=== PATIENT | male | born 1940 | race Caucasian/White ===

== ENCOUNTER → 2019-12-10 10:01 | Outpatient (BNVA) | payer MEDICARE, SELFPAY | PROVIDERS: Family Provider Family Medicine; PCP Family Medicine; Visit Provider Anesthesiology | DX: M51.36 Other intervertebral disc degeneration, lumbar region (principal); M47.816 Spondylosis without myelopathy or radiculopathy, lumbar region; M47.817 Spondylosis without myelopathy or radiculopathy, lumbosacral region; M79.651 Pain in right thigh; M79.652 Pain in left thigh; Z79.891 Long term (current) use of opiate analgesic | CPT/HCPCS: 99214 ==

== ENCOUNTER 2019-12-15 06:05 | Day surgery (SDC) | payer MEDICARE, SELFPAY ==
[2019-12-14 10:37] VITALS: BMI 36.1
[2019-12-15 06:39] VITALS: BP 120/63; PULSE 67; RESP 18; TEMP 36; O2SAT 94
[2019-12-15 06:39] LABS: Glucose Point of Care 124 mg/dL (70-110)
[2019-12-15] MEDS: sodium chloride 0.9% 1,000 ML 30 ML (06:47)
--- NOTE | 2019-12-15 06:57 | ANES.PREANE2 ---
Pre-Anesthetic Assessment Pre-Anesthetic Assessment: Height/Weight: Height 1.73 m Weight 107.955 kg Temp Pulse Resp BP Pulse Ox 96.8 F L 67 18 120/63 94 12/15/19 06:39 12/15/19 06:39 12/15/19 06:39 12/15/19 06:39 12/15/19 06:39 Preop Diagnosis: Screening colonoscopy Proposed Procedure: Operation Date: 12/15/19 07:30 Proposed Procedures p Colonoscopy 23763 Z12.11(Not Applicable) - Josué Valentin MD Was Beta Naima taken within 24 hours: N/A Last intake: Intake Last Liquid Date 12/14/19 Last Liquid Time 22:30 Last Solid Date 12/14/19 Last Solid Time 07:00 Social: Social History: No alcohol and No tobacco Exam: Pre-Anes Outpt Exam: alert, oriented x 3 and clear to auscultation bilaterally Airway: Submandibular: WNL Cervical ROM: WNL MP: 3 History/ROS: No significant history except as noted Pulmonary: Pulmonary: COPD, Sleep apnea (doesnt wear CPAP) and URI Comments: bronchitis last month CV/HEM: CV/HEM: HTN : : None reported Hepatic: Hepatic: None reported GI: GI: GERD (controlled with meds) Metabolic: Metabolic: DM and Morbid obesity Musc/skel: Musc/skel: Lower Back Pain and OA/DJD Neuropsych: Neuropsych: None reported Anesthetic Plan: ASA status: 2 Anesthesia: Anesthesia Evaluation and MAC PFSH Anesthesia PFSH: Medical History (Updated 12/10/19 @ 10:52 by Paul Bedolla MD) DDD (degenerative disc disease), lumbar Diabetes Encounter for long-term use of opiate analgesic Erectile dysfunction Facet syndrome, lumbar Hyperlipidemia Hypertension Low back pain 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
--- NOTE | 2019-12-15 07:28 | P.HP_ITS ---
Same Day Surgery H&P Indication for Procedure/HPI DATE OF PROCEDURE: December 15, 2019 CHIEF COMPLAINT/INDICATIONFOR SURGICAL PROCEDURE: Screening colonoscopy PREOP DIAGNOSIS: Screening colonoscopy PLANNED PROCEDRUE: Operation Date: 12/15/19 07:30 Proposed Procedures p Colonoscopy 61201 Z12.11(Not Applicable) - Josué Valentin MD Medications/Allergies* Home Medications Medication Instructions Recorded Confirmed Type aspirin 81 mg tablet,delayed 81 mg PO DAILY 10/27/19 12/14/19 History release atorvastatin 80 mg tablet 80 mg PO DAILY 10/27/19 12/14/19 History insulin glargine 100 unit/mL (3 43 unit SUBCUT DAILY ml 10/27/19 12/14/19 History mL) subcutaneous pen omeprazole 20 mg capsule,delayed 20 mg PO BID 10/27/19 12/15/19 History release repaglinide 2 mg tablet 2 mg PO TID 10/27/19 12/15/19 History tamsulosin 0.4 mg capsule 0.4 mg PO DAILY 10/27/19 12/15/19 History lisinopril 5 mg tablet 5 mg PO BID 10/29/19 12/15/19 History methylcellulose (laxative) 500 mg 500 mg PO QDAY 10/29/19 12/15/19 History tablet hydrocodone-acetaminophen 1 tab PO TID PRN 12/14/19 12/15/19 History pregabalin [Lyrica] 200 mg PO QID 12/14/19 12/15/19 History sennosides [senna] 8.6 mg PO BID 12/14/19 12/15/19 History Allergies/Adverse Reactions Allergy/AdvReac Type Severity Reaction Status Date / Time metformin AdvReac Severe Unknown Verified 12/15/19 06:44 Sulfa (Sulfonamide AdvReac Mild ALGY-Rash Verified 12/15/19 06:44 Antibiotics) tadalafil [From Cialis] AdvReac Mild ADR-Back Verified 12/15/19 06:44 Pain Pertinent History/Comorbid Conditions* Medical History (Updated 12/10/19 @ 10:52 by Paul Bedolla MD) DDD (degenerative disc disease), lumbar Diabetes Encounter for long-term use of opiate analgesic Erectile dysfunction Facet syndrome, lumbar Hyperlipidemia Hypertension Low back pain 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 Peripheral neuropathy Testosterone deficiency Surgical History (Updated 10/30/19 @ 10:45 by Josué Valentin MD) H/O circumcision H/O colonoscopy 11 years ago H/O elbow surgery left with hardware placed and removed H/O toe surgery right big toe Family History (Updated 10/30/19 @ 10:30 by Vicki Winters LPN) Diabetes Cancer Brother lymphoma Denies family history of Anesthesia complication Bleeding disorder Social History Smoking and tobacco status: never smoked Alcohol intake: never Household members: spouse Marital status: Current occupational status: retired Pertinent Exam Findings alert, oriented x 3 and regular rate & rhythm Recommendations Surgery/Procedure today Coding Level of Care Code Acute 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
[2019-12-15 08:05] VITALS: BP 86/55; PULSE 60; RESP 18; TEMP 36.3; O2SAT 94
[2019-12-15 08:08] VITALS: BP 106/60; PULSE 62; RESP 18; O2SAT 95
== END 2019-12-15 08:39 | disposition home or self-care (01) ==
PROVIDERS: Family Provider Family Medicine; PCP Family Medicine; Visit Provider Surgery
PROC: 0DJD8ZZ Inspection of Lower Intestinal Tract, Via Natural or Artificial Opening Endoscopic (ICD-10-PCS; CPT 45378; principal; 2019-12-15 07:30)
DX: Z12.11 Encounter for screening for malignant neoplasm of colon (principal); K64.8 Other hemorrhoids; Z79.82 Long term (current) use of aspirin; E78.5 Hyperlipidemia, unspecified; I10 Essential (primary) hypertension; E11.42 Type 2 diabetes mellitus with diabetic polyneuropathy; Z83.3 Family history of diabetes mellitus; J44.9 Chronic obstructive pulmonary disease, unspecified; G47.30 Sleep apnea, unspecified; K21.9 Gastro-esophageal reflux disease without esophagitis; E11.9 Type 2 diabetes mellitus without complications; E66.01 Morbid (severe) obesity due to excess calories; Z68.36 Body mass index [BMI] 36.0-36.9, adult; M19.90 Unspecified osteoarthritis, unspecified site; Z79.891 Long term (current) use of opiate analgesic
CPT/HCPCS: 12345; 36416; 82962; G0121; J2704; J7030

== ENCOUNTER → 2020-04-01 10:53 | Outpatient (BNVA) | payer MEDICARE, SELFPAY | PROVIDERS: Family Provider Family Medicine; PCP Family Medicine; Visit Provider Anesthesiology | DX: M51.36 Other intervertebral disc degeneration, lumbar region (principal); M47.816 Spondylosis without myelopathy or radiculopathy, lumbar region; M47.817 Spondylosis without myelopathy or radiculopathy, lumbosacral region; Z79.891 Long term (current) use of opiate analgesic | CPT/HCPCS: 99213; 99214 ==

== ENCOUNTER → 2020-06-14 07:53 | Outpatient (BNVA) | payer MEDICARE, SELFPAY | PROVIDERS: Family Provider Family Medicine; PCP Family Medicine; Visit Provider Anesthesiology | DX: M51.36 Other intervertebral disc degeneration, lumbar region (principal); M47.816 Spondylosis without myelopathy or radiculopathy, lumbar region; M47.817 Spondylosis without myelopathy or radiculopathy, lumbosacral region; Z79.891 Long term (current) use of opiate analgesic | CPT/HCPCS: 99213; 99214 ==

== ENCOUNTER → 2020-08-31 07:53 | Outpatient (BNVA) | payer MEDICARE, SELFPAY | PROVIDERS: Family Provider Family Medicine; PCP Family Medicine; Visit Provider Anesthesiology | DX: M51.36 Other intervertebral disc degeneration, lumbar region (principal); M47.816 Spondylosis without myelopathy or radiculopathy, lumbar region; M47.817 Spondylosis without myelopathy or radiculopathy, lumbosacral region; Z79.891 Long term (current) use of opiate analgesic | CPT/HCPCS: 99214 ==

== ENCOUNTER → 2020-10-20 09:27 | Outpatient (BNVA) | payer MEDICARE, SELFPAY | PROVIDERS: Family Provider Family Medicine; PCP Family Medicine; Visit Provider Nurse Practitioner | DX: M51.36 Other intervertebral disc degeneration, lumbar region (principal); M47.816 Spondylosis without myelopathy or radiculopathy, lumbar region; M47.817 Spondylosis without myelopathy or radiculopathy, lumbosacral region; Z79.891 Long term (current) use of opiate analgesic | CPT/HCPCS: 99214 ==

== ENCOUNTER → 2021-02-01 08:32 | Outpatient (BNVA) | payer MEDICARE, SELFPAY | PROVIDERS: Family Provider Family Medicine; PCP Family Medicine; Visit Provider Anesthesiology | DX: M51.36 Other intervertebral disc degeneration, lumbar region (principal); M47.816 Spondylosis without myelopathy or radiculopathy, lumbar region; M47.817 Spondylosis without myelopathy or radiculopathy, lumbosacral region; M79.671 Pain in right foot; M79.672 Pain in left foot; Z79.891 Long term (current) use of opiate analgesic | CPT/HCPCS: 99213 ==

== ENCOUNTER → 2021-04-04 09:25 | Outpatient (BNVA) | payer MEDICARE, SELFPAY | PROVIDERS: Family Provider Family Medicine; PCP Family Medicine; Visit Provider Nurse Practitioner | DX: M51.36 Other intervertebral disc degeneration, lumbar region (principal); M47.816 Spondylosis without myelopathy or radiculopathy, lumbar region; M47.817 Spondylosis without myelopathy or radiculopathy, lumbosacral region; Z79.891 Long term (current) use of opiate analgesic | CPT/HCPCS: 99213 ==

== ENCOUNTER → 2021-05-30 08:47 | Outpatient (BNVA) | payer MEDICARE, SELFPAY | PROVIDERS: Family Provider Family Medicine; PCP Family Medicine; Visit Provider Nurse Practitioner | DX: M51.36 Other intervertebral disc degeneration, lumbar region (principal); M47.816 Spondylosis without myelopathy or radiculopathy, lumbar region; M47.817 Spondylosis without myelopathy or radiculopathy, lumbosacral region; Z79.891 Long term (current) use of opiate analgesic | CPT/HCPCS: 99213 ==

== ENCOUNTER → 2021-07-25 14:01 | Outpatient (BNVA) | payer MEDICARE, SELFPAY | PROVIDERS: Family Provider Family Medicine; PCP Family Medicine; Visit Provider Anesthesiology | DX: M51.36 Other intervertebral disc degeneration, lumbar region (principal); M47.817 Spondylosis without myelopathy or radiculopathy, lumbosacral region; M47.816 Spondylosis without myelopathy or radiculopathy, lumbar region; M79.673 Pain in unspecified foot; Z79.891 Long term (current) use of opiate analgesic | CPT/HCPCS: 99213; 99214 ==

== ENCOUNTER 2022-03-27 12:44 | Outpatient (CLI) | payer MEDICARE, SELFPAY ==
--- NOTE | 2022-03-27 12:57 | MR_ITS ---
WS: [id number] MRI LUMBAR SPINE NONCONTRAST TECHNIQUE: Sagittal T1, T2 and STIR imaging. Axial T1 and T2 imaging. 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 FINDINGS: Mild lumbar curve. No acute compression. No high-grade central canal stenosis. L1-L2: Normal. L2-L3: Mild annular bulging. Mild facet arthropathy. Spinal canal and foramen are patent. L3-L4: Mild annular bulging eccentric to the RIGHT. Slight impingement on the RIGHT subarticular rece ss and traversing RIGHT L4 nerve root. Moderate facet arthropathy. Mild RIGHT foraminal narrowing. Ti ny synovial cyst at this level contributes to RIGHT subarticular recess impingement L4-L5: Mild annular bulging with slight effacement of ventral thecal sac. Shallow central protrusion. Mild RIGHT foraminal narrowing. Moderate facet arthropathy ligamentum flavum hypertrophy. L5-S1: Minimal disc bulging. Mild facet arthropathy. Spinal canal and foramen are patent. Visualized pelvic bony structures: Normal. Paravertebral soft tissues: Normal. MR/MR lumbar spine wo con* [id number] IMPRESSION: 1. Mild lumbar curve. No acute compression. No high-grade central canal stenos is. 2. Disc bulging L3-L4 impinges the RIGHT subarticular recess and traversing RI GHT L4 nerve root. Moderate facet arthropathy at this level suggestion of a tin y RIGHT synovial cyst contributes to subarticular recess impingement. 3. Disc osteophytic ridging L4-L5 with mild RIGHT L4-L5 foraminal narrowing. S light contact of the exiting RIGHT L4 nerve root. Narrowing of the subarticular recess bilaterally at this level. 4. Moderate facet arthropathy L3-L5.
== END 2022-03-27 12:45 | disposition home or self-care (01) ==
LOC: RAD 12:53
PROVIDERS: Family Provider Family Medicine; PCP Family Medicine; Visit Provider General Practice
DX: M47.816 Spondylosis without myelopathy or radiculopathy, lumbar region (principal)
CPT/HCPCS: 72148

== ENCOUNTER 2024-04-24 16:01 | Inpatient (IN) | payer MEDICARE, SELFPAY ==
[2024-04-24] VITALS (9 sets, daily range): BP systolic 64–150; BP diastolic 51–86; PULSE 82–96; RESP 14–20; TEMP 36.3–36.7; O2SAT 91–96; BMI 28.7
--- NOTE | 2024-04-24 16:06 | ECG_ITS ---
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 Measurements Intervals [place] Rate: 89 P: 55 [place]: 278 QRS: -20 QRSD: 93 T: 29 QT: 371 QTc: 453 Interpretive Statements SINUS RHYTHM WITH FIRST DEGREE AV BLOCK INDETERMINATE AXIS INCOMPLETE RIGHT BUNDLE BRANCH BLOCK [90+ ms QRS DURATION, TERMINAL R IN V1/V2, 40+ ms S IN I/aVL/V4/V5/V6] No previous ECG available for comparison Electronically Signed On 04-24-2024 20:01:19 CDT by Sanam Boswell M.D. [id number] f
[2024-04-24 16:10] LABS: Glucose Point of Care 177 mg/dL (70-110)
--- NOTE | 2024-04-24 16:11 | W.ED.FALL ---
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 He was experiencing a lightheadedness, vision narrowing, chest pain, or shortness of breath prior to this episode. He does not recall falling to the ground but waking up on the ground. He has pain in the base of his skull, the back of his neck, and severe pain in his chest. No prodromal symptoms prior to the fall. No fevers, sweats, chills, cough. Pain chest and neck describes aching, worse with movement and better with rest. ROS: 10 systems reviewed and otherwise unremarkable except for those noted in HPI. Physical Exam: Triage vital signs reviewed General: No acute distress, cooperative and comfortable HEENT: Tenderness palpation over the cervical spine, c-collar verbal order placed immediately on examination external ears normal, moist mucous membranes, PERRLA. Chest: Normal inspection, equal rise and fall, no edema, profound tenderness palpation over the sternum Respiratory: Normal respiratory effort, no atypical respiratory sounds GI: Non-tender to palpation, non-distended, Extremities: Moving all 4 extremities easily, no deformities Neuro: No meningeal signs, motor function in the room without abnormalities, sensation intact C4-T1 neurologic exam sensation and strength intact bilaterally. Skin: No rashes, bruising, warm, dry Psychiatric: Normal mood and affect Procedures: N/A MDM: Considered diagnoses include but are not limited to sequelae of blunt trauma from a fall including intracranial hemorrhage, C-spine injury, rib fracture, sternal fracture, clavicle fracture, blunt thoracic injury including blunt cardiac injury or pulmonary contusion, causes of fall including causes of syncope. Vital signs nonactionable. Based on history, exam, and any results CT demonstrating C5 and C6 fractures as well as sternal fracture. Advised of findings. Consulted [facility] and spoke to neurosurgeon who states fractures are nonsurgical at this time. Spoke to trauma surgeon at [facility] who states no need for trauma transfer at this time. Will admit the patient to this hospital for physical therapy and Occupational Therapy and pain control given age and injuries sustained. Patient pending delta troponin at time of admission. Given morphine and Tylenol in the emergency department for pain control. No neurologic deficits. Patient educated about reasons to return to the emergency department including signs of ongoing or changing condition. Advised to make an appointment with primary care or to establish care with a primary care provider to review all results from this encounter. This note was written with assistance of dictation software. Contact author for any clarification of typos. Ander Grewal MD [facility] ED [facility]: Medical History (Updated 04/24/24 @ 19:39 by Ander Grewal MD) Opioid contract exists Encounter for long-term use of opiate analgesic DDD (degenerative disc disease), lumbar Facet syndrome, lumbar Lumbar and sacral spondyloarthritis Hyperlipidemia Peripheral neuropathy Low back pain Erectile dysfunction Diabetes Testosterone deficiency Hypertension Surgical History H/O toe surgery right big toe H/O colonoscopy 12/14/2019: Normal, poor prep, repeat in 5 years H/O elbow surgery left with hardware placed and removed H/O circumcision Family History Brother Cancer lymphoma Other Diabetes Denies family history of Anesthesia complication Bleeding disorder Social History Smoking and tobacco/nicotine status: never used tobacco/nicotine Second hand smoke exposure: No Alcohol intake: never Substance/Drug Use: never Household members: spouse Marital status: Current occupational status: retired Course Vital Signs: Vital signs: Vital Signs Temperature 98.1 F 04/24/24 16:04 Pulse Rate 96 04/24/24 19:00 Respiratory Rate 14 04/24/24 19:00 Blood Pressure 142/86 04/24/24 19:00 Pulse Oximetry 96 04/24/24 19:00 Oxygen Delivery Me thod Nasal Cannula 04/24/24 19:00 Oxygen Flow Rate 2 04/24/24 19:00 MDM - Fall Medical Decision Making see [facility] Lab Data 04/24/24 16:31 04/24/24 16:31 Radiology Impressions Cervical Spine CT 04/24/24 16:18 IMPRESSION: 1. Minimally displaced acute fracture of the right C5 facet and lamina. 2. Minimally displaced acute fracture of the superior right C6 facet. 3. Old, mild compression deformities of C6 through T3. 4. Multilevel degenerative changes of varying severity in the visualized spine. Multilevel foraminal stenosis of varying severity in the cervical spine. 5. Incidental/nonacute findings are listed in the report. ADDENDUM: 04/24/24 1244 THIS REPORT CONTAINS FINDINGS THAT MAY BE CRITICAL TO PATIENT CARE. The findings were verbally communicated via telephone conference with Ander Royal at 5:43 PM CDT on 04/24/2024. The findings were acknowledged and understood. Head CT 04/24/24 16:18 IMPRESSION: 1. No acute abnormality of the brain. 2. Mild atrophy of the brain parenchyma. 3. Mild chronic white matter microangiopathic change. 4. Incidental/nonacute findings are listed in the report. Chest/Abdomen/Pelvis CT 04/24/24 16:21 IMPRESSION: Nondisplaced sternal fracture. Age-indeterminate compression deformities of C7-T3. IMPRESSION: No acute findings. Laboratory Results WBC 13.86 10^3/uL (3.29-11.43) H 04/24/24 16:31 RBC 5.35 10^6/uL (3.85-5.65) 04/24/24 16:31 Hgb 15.20 g/dL (11.27-16.99) 04/24/24 16:31 Hct 45.9 % (37-53) 04/24/24 16:31 MCV 85.8 fl (82-101) 04/24/24 16:31 MCH 28.4 pg (27-33) 04/24/24 16:31 MCHC 33.1 g/dL (30-55) 04/24/24 16:31 RDW 12.8 % (12.1-15.1) 04/24/24 16:31 Plt Count 196 10^3/cmm (157-399) 04/24/24 16:31 MPV 10.6 fL (7.4-10.4) H 04/24/24 16:31 Neut % (Auto) 76.1 % 04/24/24 16:31 Lymph % (Auto) 16.1 % 04/24/24 16:31 Izard % (Auto) 6.2 % 04/24/24 16:31 Eos % (Auto) 0.4 % 04/24/24 16:31 Baso % (Auto) 0.4 % 04/24/24 16:31 Neut # (Auto) 10.56 10^3/uL (1.8-7.7) H 04/24/24 16:31 Lymph # (Auto) 2.2 10^3/uL (0.8-4.8) 04/24/24 16:31 Izard # (Auto) 0.9 10^3/uL (0.2-0.9) 04/24/24 16:31 Eos # (Auto) 0.1 10^3/uL (0.0-0.8) 04/24/24 16:31 Baso # (Auto) 0.1 10^3/uL (0.0-0.1) 04/24/24 16:31 Nucleated RBC % (auto) 0 % 04/24/24 16:31 Nucleated RBCs # 0.0 /100WBC 04/24/24 16:31 Sodium 140 mmol/L (136-145) 04/24/24 16:31 Potassium 4.5 mmol/L (3.5-5.1) 04/24/24 16:31 Chloride 101 mmol/L (98-107) 04/24/24 16:31 Carbon Dioxide 26 mmol/L (22-29) 04/24/24 16:31 Anion Gap 17.5 (5-19) 04/24/24 16:31 BUN 24 mg/dL (8-23) H 04/24/24 16:31 Creatinine 1.3 mg/dL (0.7-1.2) H 04/24/24 16:31 GFR Calculation Not Reportable 04/24/24 16:31 Glucose 207 mg/dL (65-115) H 04/24/24 16:31 POC Glucose 177 mg/dL (70-110) H 04/24/24 16:07 Calculated Osmolality 300 mOsm/kg (285-295) H 04/24/24 16:31 Calcium 9.4 mg/dL (8.5-10.5) 04/24/24 16:31 Total Bilirubin 0.6 mg/dL (0.15-1.2) 04/24/24 16:31 AST 75 U/L (0-40) H 04/24/24 16:31 ALT 66 U/L (0-41) H 04/24/24 16:31 Alkaline Phosphatase 100 U/L (40-130) 04/24/24 16:31 Troponin T Baseline 23 ng/L (0-15) H 04/24/24 16:31 Troponin T 120 Minute 16.86 ng/L (0-15) H 04/24/24 18:27 Delta Troponin T -6.14 ABS# (0-10) L 04/24/24 18:27 Total Protein 7.6 g/dL (6.6-8.7) 04/24/24 16:31 Albumin 4.4 g/dL (3.5-5.2) 04/24/24 16:31 Globulin 3.2 g/dL (1.3-4.6) 04/24/24 16:31 All radiology interpretation(s) finalized by discharge Discharge Plan Discharge Patient Disposition: Admitted As Inpatient Clinical Impression: C5 cervical fracture Qualifiers: Encounter type: initial encounter Fracture type: closed Fracture morphology: other fracture Fracture alignment: displaced Qualified Code(s): S12.490A - Other displaced fracture of fifth cervical vertebra, initial encounter for closed fracture Sternal fracture Qualifiers: Encounter type: initial encounter Sternal location: body of sternum Fracture type: closed Qualified Code(s): S22.22XA - Fracture of body of sternum, initial encounter for closed fracture Condition: Stable Prescriptions: No Action lisinopril 5 mg tablet 5 mg PO BID Fiber Laxative(methylcellulos) 500 mg tablet 500 mg PO QDAY Ozempic 0.25 mg or 0.5 mg(2 mg/1.5 mL) pen injector SUBCUT .WEEKLY hydrocodone-acetaminophen 10-325 mg tablet 1 tab PO TID PRN (Reason: pain) 30 Days Qty: 90 0RF Rx Instructions: fill on or after 07/25/21 hydrocodone-acetaminophen 10-325 mg tablet 1 tab PO TID PRN (Reason: pain) 30 Days Qty: 90 0RF Rx Instructions: fill on or after 08/24/21 tramadol 50 mg tablet 50 mg PO Q6H PRN (Reason: pain) 30 Days Qty: 120 1RF Rx Instructions: Fill on or after 07/25/21 and 08/24/21 pregabalin [Lyrica] 200 mg capsule 200 mg PO QID 30 Days Qty: 120 1RF omeprazole 20 mg capsule,delayed release(DR/EC) 20 mg PO BID repaglinide [Prandin] 2 mg tablet 2 mg PO TID Lantus Solostar U-100 Insulin 100 unit/mL (3 mL) insulin pen 43 unit SUBCUT DAILY atorvastatin 80 mg tablet 80 mg PO DAILY tamsulosin 0.4 mg capsule 0.4 mg PO DAILY aspirin 81 mg tablet,delayed release (DR/EC) 81 mg PO DAILY sennosides [senna] 8.6 mg Tablet 8.6 mg PO BID Referrals: Blade Sebastian MD [Primary Care Provider] - Coding Level of Care Code ED De Icer Installer for Eddi Pearce
--- NOTE | 2024-04-24 16:18 | CTR_ITS ---
PROCEDURE INFORMATION: Exam: CT Cervical Spine Without Contrast Exam date and time: 04/24/2024 4:32 PM Age: 83 years old Clinical indication: Injury or trauma; Fall; Blunt trauma; Additional info: Fall, neck pain, loc TECHNIQUE: Imaging protocol: Computed tomography of the cervical spine without contrast. Sagittal, oblique axial, and coronal reformatted images were created and reviewed. Radiation optimization: All CT scans at this facility use at least one of these dose optimization techniques: automated exposure control; mA and/or kV adjustment per patient size (includes targeted exams where dose is matched to clinical indication); or iterative reconstruction. COMPARISON: CT head wo con* [id number] 04/24/2024 4:32 PM RADIATION DOSE METRICS: Total DLP (mGy-cm): 829.6 FINDINGS: Bones: Old, mild compression deformities of C6 through T3. Minimally displaced acute fracture of the right C5 facet and lamina (series 7, images 33-40). Minimally displaced acute fracture of the superior right see 6 facet (series 7, images 39-42). No subluxation. Bones are diffusely osteopenic. Multilevel degenerative changes of varying severity in the visualized spine. Multilevel foraminal stenosis of varying severity in the cervical spine. Mastoid air cells: Visualized mastoid air cells are clear. Lungs: Visualized lungs are clear. Vasculature: Mild atherosclerotic changes in the visualized arteries. Soft tissues: No soft tissue swelling. No radiopaque foreign body. CT/CT cervical spin wo con* [id number] IMPRESSION: 1. Minimally displaced acute fracture of the right C5 facet and lamina. 2. Minimally displaced acute fracture of the superior right C6 facet. 3. Old, mild compression deformities of C6 through T3. 4. Multilevel degenerative changes of varying severity in the visualized spine. Multilevel foraminal stenosis of varying severity in the cervical spine. 5. Incidental/nonacute findings are listed in the report.
--- NOTE | 2024-04-24 16:18 | CTR_ITS ---
PROCEDURE INFORMATION: Exam: CT Head Without Contrast Exam date and time: 04/24/2024 4:32 PM Age: 83 years old Clinical indication: Injury or trauma; Fall; Blunt trauma (contusions or hematomas); With loss of consciousness; Loss of consciousness for 30 minutes or less; Additional info: Fall loc, neck and posterior head pain TECHNIQUE: Imaging protocol: Computed tomography of the head without contrast. Sagittal and coronal reformatted images were created and reviewed. Radiation optimization: All CT scans at this facility use at least one of these dose optimization techniques: automated exposure control; mA and/or kV adjustment per patient size (includes targeted exams where dose is matched to clinical indication); or iterative reconstruction. COMPARISON: CT cervical spin wo con* [id number] 04/24/2024 4:32 PM RADIATION DOSE METRICS: Total DLP (mGy-cm): 868 FINDINGS: Brain: No acute intracranial hemorrhage. No acute infarct. No intra-axial or extra-axial masses. Herman-white matter differentiation is preserved. No cerebral edema. No extra-axial fluid collections. No midline shift. No evidence for Chiari 1 malformation. Mild atrophy of the brain parenchyma. Mildly decreased attenuation in the deep white matter, consistent with mild chronic microangiopathic change. Cerebral ventricles: No hydrocephalus. Paranasal sinuses: Visualized paranasal sinuses are clear. Mastoid air cells: Unremarkable as visualized. Orbital cavities: No acute abnormality in the visualized orbits. Bones: No acute fracture. Bones are diffusely osteopenic. Soft tissues: The extracranial soft tissues are unremarkable. Vasculature: InMild atherosclerotic changes in the visualized arteries. CT/CT head wo con* [id number] IMPRESSION: 1. No acute abnormality of the brain. 2. Mild atrophy of the brain parenchyma. 3. Mild chronic white matter microangiopathic change. 4. Incidental/nonacute findings are listed in the report.
--- NOTE | 2024-04-24 16:21 | CTR_ITS ---
PROCEDURE INFORMATION: Exam: CT Chest Without Contrast; Diagnostic Exam date and time: 04/24/2024 4:37 PM Age: 83 years old Clinical indication: Injury or trauma; Fall; Generalized; Blunt trauma (contusions or hematomas); Additional info: Fall with loc, eval trauma TECHNIQUE: Imaging protocol: Diagnostic computed tomography of the chest without contrast. Radiation optimization: All CT scans at this facility use at least one of these dose optimization techniques: automated exposure control; mA and/or kV adjustment per patient size (includes targeted exams where dose is matched to clinical indication); or iterative reconstruction. COMPARISON: CT cervical spin wo con* [id number] 04/24/2024 4:32 PM RADIATION DOSE METRICS: Total DLP (mGy-cm): 1135.18 FINDINGS: Lungs: No focal consolidation. Pleural spaces: No pneumothorax or pleural effusion. Heart: Coronary calcifications. No pericardial effusion. Lymph nodes: No enlarged lymph nodes. Vasculature: No aortic aneurysm. Bones/joints: Nondisplaced sternal fracture. Mild age-indeterminate compression deformities of C7-T3 with resulting kyphosis. No significant retropulsion. Soft tissues: No acute findings. PROCEDURE INFORMATION: Exam: CT Abdomen And Pelvis Without Contrast Exam date and time: 04/24/2024 4:37 PM Age: 83 years old Clinical indication: Injury or trauma; Fall; Generalized; Blunt trauma (contusions or hematomas); Additional info: Fall with loc, eval trauma TECHNIQUE: Imaging protocol: Computed tomography of the abdomen and pelvis without contrast. Radiation optimization: All CT scans at this facility use at least one of these dose optimization techniques: automated exposure control; mA and/or kV adjustment per patient size (includes targeted exams where dose is matched to clinical indication); or iterative reconstruction. COMPARISON: MR lumbar spine wo con* [id number] 03/27/2022 1:53 PM RADIATION DOSE METRICS: Total DLP (mGy-cm): 1135.18 FINDINGS: Liver: No acute findings Gallbladder and biliary ducts: No acute findings. Pancreas: No ductal dilation. Spleen: No splenomegaly. Adrenal glands: No mass. Kidneys and ureters: No stones or hydronephrosis. Stomach and bowel: Small hiatal hernia. No obstruction. Appendix: No evidence of appendicitis. Intraperitoneal space: No free air. No significant fluid collection. Vasculature: No abdominal aortic aneurysm. Lymph nodes: No enlarged lymph nodes. Urinary bladder: Incompletely distended. Reproductive: Mild prostatomegaly. Bones/joints: No acute findings. Soft tissues: No acute findings. [place] [id number] IMPRESSION: Nondisplaced sternal fracture. Age-indeterminate compression deformities of C7-T3. IMPRESSION: No acute findings.
[2024-04-24 17:15] LABS: Alanine Aminotransferase 66 U/L (0-41); Albumin Level 4.4 g/dL (3.5-5.2); Alkaline Phosphatase 100 U/L (40-130); Anion Gap 17.5 (5-19); Aspartate Amino Transferase 75 U/L (0-40); Basophils # 0.1 10^3/uL (0.0-0.1); Basophils % 0.4 %; Blood Urea Nitrogen 24 mg/dL (8-23); Calcium 9.4 mg/dL (8.5-10.5); Carbon Dioxide 26 mmol/L (22-29); Chloride 101 mmol/L (98-107); Creatinine Clr Calc Pharmacy 52.0385; Eosinophils # 0.1 10^3/uL (0.0-0.8); Eosinophils % 0.4 %; Globulin 3.2 g/dL (1.3-4.6); Glucose 207 mg/dL (65-115); Hematocrit 45.9 % (37-53); Lymphocytes # 2.2 10^3/uL (0.8-4.8); Lymphocytes % 16.1 %; Mean Corpuscular HGB Conc 33.1 g/dL (30-55); Mean Corpuscular Hemoglobin 28.4 pg (27-33); Mean Corpuscular Volume 85.8 fl (82-101); Mean Platelet Volume 10.6 fL (7.4-10.4); Monocytes # 0.9 10^3/uL (0.2-0.9); Monocytes % 6.2 %; Neutrophils # 10.56 10^3/uL (1.8-7.7); Neutrophils % 76.1 %; Nucleated Red Blood Cells % 0 %; Osmolality Calculated 300 mOsm/kg (285-295); Platelet Count 196 10^3/cmm (157-399); Potassium 4.5 mmol/L (3.5-5.1); Red Blood Count 5.35 10^6/uL (3.85-5.65); Red Cell Distribution Width 12.8 % (12.1-15.1); Sodium 140 mmol/L (136-145); Total Bilirubin 0.6 mg/dL (0.15-1.2); Total Protein 7.6 g/dL (6.6-8.7); White Blood Count 13.86 10^3/uL (3.29-11.43)
[2024-04-24 17:16] LABS: Troponin(5th) Baseline 23 ng/L (0-15)
--- NOTE | 2024-04-24 18:42 | PC.NURSE ---
Patient placed on oxygen @ 2l nc d/t desat when sleeping to 85%. Improvement to mid 90s and Dr Grewal notified.
[2024-04-24 18:56] LABS: Troponin 5 2HR 16.86 ng/L (0-15)
[2024-04-24 18:57] LABS: Troponin 5 2HR Delta -6.14 ABS# (0-10)
--- NOTE | 2024-04-24 19:34 | P.HP_ITS ---
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 Patient is stating that last night he was experiencing significant burning in his feet related to neuropathy he took morphine and Lyrica and repeated the dose in the morning. When he woke up he was not experiencing any chest pain shortness of breath nausea vomiting, he went out to load his semitrailer. Patient walked out from one of the side doors of the truck as soon as he came in front of the truck he passed out. He did not express any warning symptoms. Patient thinks he was just dehydrated. He did not experience any seizure related activity. In the ER I have requested orthostatics hypotension, patient looks dehydrated Trauma workup revealed old compression deformity C6-T3 Acute fracture of right C5 facet, C6 ER physician spoke with the emergency trauma surgeon at [facility] and neurosurgeon they recommended nonoperative options such as pain management, keeping the cervical collar on for at least 6 to 8 weeks and then follow-up with the trauma surgeon outpatient, Review of Systems 2 Const: Denies: fever(s) Eyes: Denies: change in vision ENMT: Denies: throat pain Card: Denies: chest pain Resp: Denies: dyspnea GI: Denies: abdominal pain : Denies: flank pain Musc: Denies: neck pain Medications/Allergies Home Medications Medication Instructions Recorded Confirmed Last Taken Type aspirin 81 mg tablet,delayed 81 mg PO DAILY 10/27/19 04/24/24 12/14/19 History release atorvastatin 80 mg tablet 80 mg PO DAILY 10/27/19 04/24/24 12/14/19 History insulin glargine 100 unit/mL (3 80 unit SUBCUT DAILY 10/27/19 04/24/24 12/14/19 History mL) subcutaneous pen (Lantus Solostar U-100 Insulin) omeprazole 20 mg capsule,delayed 20 mg PO BID 10/27/19 04/24/24 12/15/19 History release methylcellulose (laxative) 500 mg 500 mg PO QDAY 10/29/19 04/24/24 12/14/19 History tablet (Fiber Laxative (methylcellulose)) sennosides 8.6 mg tablet (senna) 8.6 mg PO BID 12/14/19 04/24/24 12/14/19 History morphine 15 mg immediate release 15 mg PO Q8H PRN Pain 04/24/24 04/24/24 Unknown History tablet pregabalin 300 mg capsule 300 mg PO BID 04/24/24 04/24/24 Unknown History tirzepatide 12.5 mg/0.5 mL 12.5 mg SUBCUT Q7D 04/24/24 04/24/24 Unknown History subcutaneous pen injector (Mounjaro) Allergies Allergy/AdvReac Type Severity Reaction Status Date / Time metformin AdvReac Severe Unknown Verified 10/04/21 08:49 Sulfa (Sulfonamide AdvReac Mild ALGY-Rash Verified 10/04/21 08:49 Antibiotics) tadalafil [From Cialis] AdvReac Mild ADR-Back Verified 10/04/21 08:49 Pain PFSH Acute 2 PFSH: Medical History (Updated 04/24/24 @ 20:19 by Atiya Kerr MD) Opioid contract exists Encounter for long-term use of opiate analgesic DDD (degenerative disc disease), lumbar Facet syndrome, lumbar Lumbar and sacral spondyloarthritis Hyperlipidemia Peripheral neuropathy Low back pain Erectile dysfunction Diabetes Testosterone deficiency Hypertension Surgical History H/O toe surgery right big toe H/O colonoscopy 12/14/2019: Normal, poor prep, repeat in 5 years H/O elbow surgery left with hardware placed and removed H/O circumcision Family History Brother Cancer lymphoma Other Diabetes Denies family history of Anesthesia complication Bleeding disorder Social History Smoking and tobacco/nicotine status: never used tobacco/nicotine Second hand smoke exposure: No Alcohol intake: never Substance/Drug Use: never Household members: spouse Marital status: Current occupational status: retired Vitals/I&O/Wt Last Vital Signs Temp 98.1 F 04/24/24 16:04 Pulse 96 04/24/24 19:00 Resp 14 04/24/24 19:00 BP 142/86 04/24/24 19:00 Pulse Ox 96 04/24/24 19:00 O2 Del Method Nasal Cannula 04/24/24 19:00 O2 Flow Rate 2 04/24/24 19:00 Weight last 48 hrs Weight 93.44 kg Physical Exam 2 Narrative: Patient is awake and alert Has a C-spine collar Hemodynamically stable Hypertensive Sinus rhythm No active pain GCS 15 S1, S2 No audible stridor or wheezing Currently on 2 L nasal cannula Pleasant cooperative Nonfocal neuroexam NIH 0 GCS 15 Clinically looks slightly dehydrated Data 04/24/24 16:31 04/24/24 16:31 A&P Assessment and plan (1) Encounter for long-term use of opiate analgesic: (2) Lumbar and sacral spondyloarthritis: (3) Facet syndrome, lumbar: (4) C5 cervical fracture: Qualifiers: Encounter type: initial encounter Fracture alignment: displaced F racture morphology: other fracture Fracture type: closed Qualified Code(s): S 12.490A - Other displaced fracture of fifth cervical vertebra, initial encounter for closed fracture (5) Dehydration: Plan Syncopal event Will request echo Request D-dimer Keep patient on telemetry Check B12 and TSH Serial troponin EKG No history of MD or CHF in the past Rule out orthostatics Patient stating that he took doses of Lyrica and morphine at a very short interval he is concerned about overdose No significant hemodynamic instability C7-T3 fracture Cervical collar is on Spoke with trauma surgery who recommended nonoperative medical options for now Pain management Patient will need to keep the collar on for at least 6 to 8 weeks He will need clearance before he resumes his work which is physically challenging Diabetic neuropathy Continue Lyrica Chronic opioid use takes morphine at home 15 mg, follows up with pain management clinic at [facility] ROMA: Do not have baseline creatinine, monitor closely for now I will give patient IV fluids overnight Request orthostatics Full code DVT prophylaxis: Heparin Attestations 2 Medical Necessity Statement*: Anticipating discharge within 48 hours Diagnoses Encounter for long-term use of opiate analgesic Z79.891 Lumbar and sacral spondyloarthritis M47.817 Facet syndrome, lumbar M47.816 C5 cervical fracture S12.490A Encounter type: initial encounter Fracture alignment: displaced Fracture morphology: other fracture Fracture type: closed Dehydration E86.0
--- NOTE | 2024-04-24 19:36 | PC.NURSE ---
Per verbal order Dr Grewal Give pt zofran 4mg ivp and morphine 4mg ivp. RBVO and placed.
[2024-04-24] MEDS: ondansetron 2 mg/ML SDV 2 mL 4 MG IVP (20:06)
[2024-04-24] MEDS: morphine 4 mg/mL SDV 1 mL IVP (20:07)
[2024-04-24] MEDS: acetaminophen 500 mg Tablet 1000 MG PO (20:41)
[2024-04-24] MEDS: sodium chloride 0.9% 1,000 ML 75 ML IV (21:12)
[2024-04-24] MEDS: heparin 5,000 unit/mL INJ 1 mL 5000 UNIT SUBCUT (21:18)
[2024-04-24 21:21] LABS: D Dimer 11.85 ug/mLFEU (0-0.59)
[2024-04-24 21:30] LABS: Estmated Average Glucose 235; Hemoglobin A1C 9.8 % (4.0-6.0)
[2024-04-24 21:47] LABS: Thyroid Stimulating Hormone 2.07 uIU/mL (0.27-4.20); Vitamin B12 1066 pg/mL (232-1245)
[2024-04-25] VITALS (16 sets, daily range): BP systolic 126–152; BP diastolic 70–76; PULSE 72–83; RESP 12–18; TEMP 36.4–37.4; O2SAT 92–97
[2024-04-25] MEDS: morphine IR 15 mg Tablet PO (02:42)
[2024-04-25 03:02] LABS: Urine Appearance Clear (CLEAR); Urine Color Dark Yellow (Yellow)
[2024-04-25 03:03] LABS: Add Urine Microscopic? YES; Bacteria Urine 1+ /hpf; Bilirubin Urine Neg (Negative); Blood Urine Neg (Negative); Glucose Urine UA 1+ (Normal); Ketones Urine Negative (Negative); Leukocyte Esterase Urine Negative (Negative); Mucus Urine 1+ /hpf; Nitrate Urine Negative (Negative); Protein Urine Trace (Negative); RBC Urine 0-4 /hpf (0-2); Squamous Epithelial Cell Urine 0-4 /hpf (0-5); Urobilinogen Urine Neg (Negative); WBC Urine 0-4 /hpf (0-5); pH Urine 5 (5-7)
[2024-04-25 04:11] LABS: Basophils % 0.3 %; Eosinophils # 0.1 10^3/uL (0.0-0.8); Eosinophils % 1.3 %; Hematocrit 44.5 % (37-53); Lymphocytes # 2.7 10^3/uL (0.8-4.8); Lymphocytes % 24.5 %; Mean Corpuscular HGB Conc 32.1 g/dL (30-55); Mean Corpuscular Volume 87.1 fl (82-101); Monocytes # 0.9 10^3/uL (0.2-0.9); Monocytes % 7.8 %; Neutrophils # 7.21 10^3/uL (1.8-7.7); Neutrophils % 65.6 %; Nucleated Red Blood Cells % 0 %; Platelet Count 190 10^3/cmm (157-399); Red Blood Count 5.11 10^6/uL (3.85-5.65); Red Cell Distribution Width 12.9 % (12.1-15.1)
[2024-04-25 04:35] LABS: Anion Gap 15.9 (5-19); Blood Urea Nitrogen 23 mg/dL (8-23); Calcium 8.9 mg/dL (8.5-10.5); Carbon Dioxide 25 mmol/L (22-29); Chloride 102 mmol/L (98-107); Creatinine Clr Calc Pharmacy 57.9006; Glucose 229 mg/dL (65-115); Osmolality Calculated 299 mOsm/kg (285-295); Phosphorus 4.1 mg/dL (2.5-4.5); Potassium 3.9 mmol/L (3.5-5.1); Sodium 139 mmol/L (136-145)
--- NOTE | 2024-04-25 06:00 | USCV_ITS ---
Scotty Bro Age: 83 Gender: M : 1940 Exam Date: 04/25/2024 10:12 Ordering Phys: Atiya Kerr MD Technologist: Nitin Espinal Exam Location: [facility] [place] Ind[place]: syncope BP: 144 / 73 HR: 71 Rhythm: Sinus Technical Quality: Adequate MEASUREMENTS (Male / Female) Normal Values 2D ECHO LV Ejection Fraction MOD 4C 74.3 % LV Ejection Fraction MOD 2C 67.6 % LV Ejection Fraction 2C AL 67.8 % LA Diameter 3.1 cm RA Systolic Volume 4C AL 37.8 ml RA Systolic Volume 4C MOD 37.2 ml LA Sys Volume AL 30.6 cm cubed LA Sys Volume Index AL 13.6 cm cubed/m squared Aorta at Sinotubular Diameter 2.2 cm IVC Diameter 2.0 cm M-MODE LA Ao Ratio MM 1.2 AV Cusp Separation MM 2.0 cm DOPPLER AV Peak Velocity 114.0 cm/s LVOT Peak Velocity 114.0 cm/s MV Peak Velocity 95.0 cm/s MV Area PHT 5.4 cm squared Mitral E to A Ratio 0.9 TV Peak Velocity 210.7 cm/s TR Peak Velocity 242.0 cm/s TR Peak Gradient 23.4 mmHg TR Mean Velocity 188.0 cm/s TR Mean Gradient 15.9 mmHg TR Velocity Time Integral 46.3 cm PV Peak Velocity 144.0 cm/s RV Ejection Time 0.3 s FINDINGS Left Ventricle Normal left ventricular size, systolic function and wall thickness, with no regional wall motion abnormalities. Left ventricular ejection fraction is estimated at 70 %. Right Ventricle Normal right ventricular size and systolic function. Right Atrium Normal right atrial size. Left Atrium Normal left atrial size. Mitral Valve Thickened mitral valve. Mitral annular calcification. No mitral valve regurgitation. Aortic Valve Thickened aortic valve. No aortic valve stenosis. Tricuspid Valve Structurally normal tricuspid valve. Pulmonic Valve Pulmonic valve not well visualized. Pericardium No pericardial effusion. Aorta Normal size aortic root and proximal ascending aorta. IVC Normal inferior vena cava. CONCLUSIONS Normal left ventricular size and function with an estimated ejection fraction of 70 %. Normal chambers sizes. No significant valvular abnormality noted. Normal right heart and pulmonary pressures. Sabrina Bearden MD (Electronically Signed) Final Date: 25 April 2024 16:50 S
[2024-04-25 06:32] LABS: Glucose Point of Care 225 mg/dL (70-110)
[2024-04-25] MEDS: insulin lispro 100 unit/1 mL SUBCUT ×3 (08:42→17:00)
[2024-04-25] MEDS: atorvastatin 40 mg Tablet PO (08:43)
[2024-04-25] MEDS: pregabalin 150 mg Capsule 300 MG PO ×2 (08:43→17:00)
[2024-04-25] MEDS: sennosides 8.6 mg Tablet PO ×2 (08:44→17:00)
[2024-04-25] MEDS: aspirin 81 mg EC Tablet PO (08:44)
[2024-04-25] MEDS: heparin 5,000 unit/mL INJ 1 mL 5000 UNIT SUBCUT ×2 (08:44→21:01)
[2024-04-25] MEDS: HYDROmorphone 1 mg/mL INJ 1 mL IVP ×4 (08:45→21:01)
[2024-04-25] MEDS: pneumococcal (23 valent) SDV 0.5 mL IM (10:48)
[2024-04-25] MEDS: insulin glargine 100 units/1 mL 25 UNIT SUBCUT (10:53)
[2024-04-25] MEDS: sodium chloride 0.9% 1,000 ML 75 ML IV (10:54)
[2024-04-25 11:04] LABS: Glucose Point of Care 245 mg/dL (70-110)
--- NOTE | 2024-04-25 12:47 | CTR_ITS ---
PROCEDURE INFORMATION: Exam: CT Maxillofacial Without Contrast Exam date and time: 04/25/2024 1:36 PM Age: 83 years old Clinical indication: Facial Injury or trauma; Fall; Blunt trauma (contusions or hematomas); Forehead TECHNIQUE: Imaging protocol: Computed tomography of the face without contrast. Radiation optimization: All CT scans at this facility use at least one of these dose optimization techniques: automated exposure control; mA and/or kV adjustment per patient size (includes targeted exams where dose is matched to clinical indication); or iterative reconstruction. COMPARISON: CT head wo con* [id number] 04/24/2024 4:32 PM RADIATION DOSE METRICS: Total DLP (mGy-cm): 589.58 FINDINGS: No acute fracture of the mandible identified. No acute maxillofacial fracture is seen. No obvious acute orbital fracture. Optic globes appear intact. Mucosal thickening is present inferiorly in the maxillary sinuses. Otherwise, paranasal sinuses are well-aerated. CT/CT facial bones wo con* [id number] IMPRESSION: No acute maxillofacial or orbital fracture detected.
--- NOTE | 2024-04-25 12:47 | XRR_ITS ---
PROCEDURE INFORMATION: Exam: XR Right Hand Exam date and time: 04/25/2024 1:39 PM Age: 83 years old Clinical indication: Injury or trauma; Fall; Blunt trauma (contusions or hematomas); Hand; Right; Additional info: Pain TECHNIQUE: Imaging protocol: Radiologic exam of the right hand. Views: 1 or 2 views. COMPARISON: No relevant prior studies available. FINDINGS: Bones/joints: No fracture or other acute osseous abnormality identified. Mild chronic DJD at multiple joints. Soft tissues: No soft tissue gas or radiodense foreign body. XR/XR hand RT 2V [id number] IMPRESSION: No acute abnormality detected.
[2024-04-25] MEDS: lanolin oint 7 gm 1 APPLIC TOPICAL (13:17)
[2024-04-25 16:39] LABS: Glucose Point of Care 172 mg/dL (70-110)
--- NOTE | 2024-04-25 17:07 | P.PN_ITS ---
Subjective 2 Subjective: - Patient was seen this morning -He is alert oriented x 3, following all commands ? Denies any focal weakness, no focal paresthesias, no urinary continence or bowel incontinence, no seizure like episodes, no strokelike symptoms no facial droop no slurring of words no chest pain, no shortness of breath ? His current complaint is neck pain, he tells me he hurts all over but currently his right hand hurts him after his fall, and his right jaw specifically the right TMJ joint hurts him -He tells me that he lives [facility] of his [facility], and he was setting up his air conditioning unit, as it has been very hot, unfortunately when he set up his air conditioning unit, he was doing it by himself, and he set it up upside down, she was trying to turn it, when he stepped back and that the last thing he remembers, he went over his guard railing, that he has built with a set of stairs that leads up to [place], he tripped over it the guard railing and fell 6 feet to the ground, -She is not exactly sure the trail of ev ents, but it sounds like he had a syncopal episode, but denies any preceding chest pain, palpitations, strokelike symptoms, seizure-like episodes but he tells me that it was very hot yesterday he was sweating, very dehydrated as he did not have any air conditioning, and he was try to set it up ? He denies prior history of syncope, denies any significant cardiovascular history -He also does admit that that morning, h e took his Lyrica, and morphine that morning, due to neuropathy Vitals/I&O/Wt Last Vital Signs Temp 98.3 F 04/25/24 16:16 Pulse 72 04/25/24 16:16 Resp 16 04/25/24 16:58 BP 145/74 04/25/24 16:16 Pulse Ox 96 04/25/24 16:16 O2 Del Method Nasal Cannula 04/25/24 16:16 O2 Flow Rate 2 04/25/24 13:31 04/25/24 04/25/24 04/25/24 06:59 14:59 22:59 Intake Total 1480 / 1480 Output Total 500 / 500 1475 / 1475 Balance -500 / -260 5 / 5 Weight last 48 hrs Weight 99.025 kg Weight 95.906 kg Weight 93.44 kg Physical Exam 2 Const: COMMON NORMALS: no acute distress and patient oriented x3 HENMT: COMMON NORMALS: normocephalic HEAD & SCALP: normocephalic Neck/C-Spine: COMMON NORMALS: no JVD Resp: COMMON NORMALS: normal respiratory effort, No retractions, No use of accessory muscles and clear to auscultation bilaterally AUSCULTATION: clear to auscultation bilaterally Cardio: COMMON NORMALS: no JVD, regular rate, regular rhythm, S1 normal heart sound present and S2 normal heart sound present RATE: regular rate RHYTHM: regular rhythm HEART SOUNDS: S1 normal heart sound present and S2 normal heart sound present GI: COMMON NORMALS: Normal to inspection, nondistended, normoactive bowel sounds present and non-tender Extremity: COMMON NORMALS: no calf tenderness and no pedal edema Neuro: COMMON NORMALS: patient oriented x3, CN's II-XII intact bilaterally, moves all extremities and no focal motor deficits Psych: COMMON NORMALS: mental status grossly normal Data 04/25/24 02:52 04/25/24 02:52 A&P Assessment and plan (1) Syncopal episodes: (2) Encounter for long-term use of opiate analgesic: (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, lumbar: (5) C5 cervical fracture: Qualifiers: Encounter type: initial encounter Fracture alignment: displaced F racture morphology: other fracture Fracture type: closed Qualified Code(s): S 12.490A - Other displaced fracture of fifth cervical vertebra, initial encounter for closed fracture (6) Dehydration: Plan Syncopal event -Likely combination of orthostatic hypotension, dehydration, polypharmacy Patient was profoundly orthostatic blood pressure dropped to 64/53 upon standing Did also take morphine and Lyrica that morning of his fall Cardiac echo pending Carotid artery ultrasound pending D-dimer 11, no calf pain, no calf swelling, no sudden onset of shortness of breath, no hemoptysis, will monitor Keep patient on telemetry Check B12 and TSH within normal limits Serial troponin EKG No history of CA or CHF in the past Patient stating that he took doses of Lyrica and morphine at a very short interval he is concerned about overdose No significant hemodynamic instability Fall, over 6 feet C7-T3 fracture Cervical collar is on Spoke with trauma surgery who recommended nonoperative medical options for now Pain management Patient will need to keep the collar on for at least 6 to 8 weeks He will need clearance before he resumes his work which is physically challenging Diabetic neuropathy Continue Lyrica Chronic opioid use takes morphine at home 15 mg, follows up with pain management clinic at [facility], switch to IV Dilaudid due to intractable pain ROMA: Do not have baseline creatinine, monitor closely for now fluids overnight Request orthostatics Full code DVT prophylaxis: Heparin Intractable pain, needs pain control, through IV pain medications, needs IV fluids, needs workup for syncopal episode, PT OT, complaints of right jaw pain CT facial droop right hand pain, x-ray right hand Attestations 2 Medical Necessity Statement*: Patient requires hospitalization for syncopal episode, fall, C7 T3 fracture, ROMA Diagnoses Syncopal episodes R55 Encounter for long-term use of opiate analgesic Z79.891 Lumbar and sacral spondyloarthritis M47.817 Facet syndrome, lumbar M47.816 C5 cervical fracture S12.490A Encounter type: initial encounter Fracture alignment: displaced Fracture morphology: other fracture Fracture type: closed Dehydration E86.0
[2024-04-25 21:33] LABS: Glucose Point of Care 182 mg/dL (70-110)
[2024-04-26] VITALS (17 sets, daily range): BP systolic 116–166; BP diastolic 67–84; PULSE 71–89; RESP 13–18; TEMP 36.6–37.5; O2SAT 91–98
[2024-04-26] MEDS: sodium chloride 0.9% 1,000 ML 75 ML IV ×2 (00:01→13:10)
[2024-04-26] MEDS: HYDROmorphone 1 mg/mL INJ 1 mL IVP ×6 (01:16→22:17)
--- NOTE | 2024-04-26 06:00 | USR_ITS ---
PROCEDURE INFORMATION: Exam: US Duplex Bilateral Extracranial Arteries; Complete; Carotid Arteries Exam date and time: 04/26/2024 9:51 AM Age: 83 years old Clinical indication: Syncope and collapse TECHNIQUE: Imaging protocol: Real-time duplex ultrasound scan of the bilateral extracranial arteries combining grijalva scale, color Doppler and spectral waveform analysis with image documentation. Complete exam. Exam focused on the carotid arteries. COMPARISON: CT facial bones wo con* [id number] 04/25/2024 1:36 PM FINDINGS: Right common carotid artery: Unremarkable. No occlusion or stenosis. Waveforms are normal. Right internal carotid artery: Unremarkable. No occlusion or stenosis. Waveforms are normal. Right ICA/CCA ratio: Within normal limits. Right external carotid artery: No stenosis in the origin. Right vertebral artery: Unremarkable. Antegrade flow. Left common carotid artery: Unremarkable. No occlusion or stenosis. Waveforms are normal. Left internal carotid artery: Unremarkable. No occlusion or stenosis. Waveforms are normal. Left ICA/CCA ratio: Within normal limits. Left external carotid artery: No stenosis in the origin. Left vertebral artery: Unremarkable. Antegrade flow. US/CV carotid duplex BI* [id number] IMPRESSION: No carotid arterial stenosis. REFERENCES: SRU CRITERIA. The degree of internal carotid artery stenosis is based on criteria defined by the Society of Radiologists in Ultrasound (SRU). Normal is no stenosis. Mild is less than 50% stenosis. Moderate is 50-69% stenosis. Severe is greater than 69% stenosis to near occlusion. Near occlusion is a markedly narrowed lumen. Total occlusion is no detectable patent lumen.
[2024-04-26 06:51] LABS: Glucose Point of Care 179 mg/dL (70-110)
[2024-04-26] MEDS: insulin lispro 100 unit/1 mL SUBCUT ×3 (08:44→18:10)
[2024-04-26] MEDS: insulin glargine 100 units/1 mL 25 UNIT SUBCUT (08:44)
[2024-04-26] MEDS: aspirin 81 mg EC Tablet PO (08:45)
[2024-04-26] MEDS: pregabalin 150 mg Capsule 300 MG PO ×2 (08:45→18:10)
[2024-04-26] MEDS: heparin 5,000 unit/mL INJ 1 mL 5000 UNIT SUBCUT ×2 (08:45→20:53)
[2024-04-26] MEDS: atorvastatin 40 mg Tablet PO (08:45)
[2024-04-26] MEDS: sennosides 8.6 mg Tablet PO ×2 (08:45→18:10)
[2024-04-26 11:10] LABS: Glucose Point of Care 233 mg/dL (70-110)
--- NOTE | 2024-04-26 14:35 | CTR_ITS ---
PROCEDURE INFORMATION: Exam: CT Thoracic Spine Without Contrast Exam date and time: 04/26/2024 3:42 PM Age: 83 years old Clinical indication: Pain in thoracic spine TECHNIQUE: Imaging protocol: Computed tomography of the thoracic spine without contrast. Radiation optimization: All CT scans at this facility use at least one of these dose optimization techniques: automated exposure control; mA and/or kV adjustment per patient size (includes targeted exams where dose is matched to clinical indication); or iterative reconstruction. COMPARISON: CT lumbar spine wo con* [id number] 04/26/2024 3:42 PM RADIATION DOSE METRICS: Total DLP (mGy-cm): 1044.7 FINDINGS: Bones/joints: There is a pronounced accentuated kyphotic curvature at the cervicothoracic junction unchanged. Moderate wedge compression fracture T3 vertebral body and mild anterior wedging of T1 and T2 vertebral bodies unchanged and indeterminate age. Multilevel lateral endplate osteophytes throughout the thoracic spine that may be degenerative disc changes or DISH. No significant interval changes detected. Soft tissues: Unremarkable. Lungs: Interval development of subsegmental atelectasis along the paravertebral gutters there is small amount of debris noted within the right mainstem bronchus. Other findings: Small hiatal hernia redemonstrated. CT/CT thoracic spin wo con* [id number] IMPRESSION: 1. Accentuated kyphotic curvature with stable compression fractures of the upper thoracic spine most pronounced at C3 unchanged from prior study. 2. Multilevel degenerative osteophytosis throughout the thoracic spine. 3. Interval development of bibasilar subsegmental atelectasis.
--- NOTE | 2024-04-26 14:35 | CTR_ITS ---
PROCEDURE INFORMATION: Exam: CT Lumbar Spine Without Contrast Exam date and time: 04/26/2024 3:42 PM Age: 83 years old Clinical indication: Low back pain TECHNIQUE: Imaging protocol: Computed tomography of the lumbar spine without contrast. Radiation optimization: All CT scans at this facility use at least one of these dose optimization techniques: automated exposure control; mA and/or kV adjustment per patient size (includes targeted exams where dose is matched to clinical indication); or iterative reconstruction. COMPARISON: MR lumbar spine wo con* [id number] 03/27/2022 1:53 PM RADIATION DOSE METRICS: Total DLP (mGy-cm): 836 FINDINGS: Bones/joints: Lumbar curvature and alignment is unremarkable. No compression fractures, spondylolysis or spondylolisthesis. Moderate degenerative changes lower lumbar facet joints. No severe stenosis of the central canal or neural foramina. Soft tissues: Unremarkable. CT/CT lumbar spine wo con* [id number] IMPRESSION: 1. No acute bony abnormalities. 2. No significant spinal stenosis.
--- NOTE | 2024-04-26 15:50 | P.PN_ITS ---
Subjective 2 Subjective: Patient was seen this morning, he has severe intractable pain, he tells me that as soon as the Dilaudid wears off, he is having severe intractable pain he tells me that he can handle it, he cannot function with this pain, he is also now having pain in his mid and lower back, he tells me his chronic back pain, he has a history of bulging disc, but now the pain is much more severe, he has limited range of motion, no focal weakness, no ascending weakness, no paresthesias, no urinary continence, no bowel incontinence, no saddle or perianal anesthesia Vitals/I&O/Wt Last Vital Signs Temp 98.2 F 04/26/24 11:20 Pulse 75 04/26/24 11:20 Resp 18 04/26/24 14:21 BP 151/76 04/26/24 11:20 Pulse Ox 98 04/26/24 14:21 O2 Del Method Nasal Cannula 04/26/24 11:20 O2 Flow Rate 2 04/26/24 08:44 04/26/24 04/26/24 04/26/24 06:59 14:59 22:59 Intake Total 931.25 / 2891.25 1706.25 / 1706.25 Output Total 350 / 2275 1125 / 1125 Balance 581.25 / 616.25 581.25 / 581.25 Weight last 48 hrs Weight 99.365 kg Weight 99.025 kg Weight 95.906 kg Weight 93.44 kg Physical Exam 2 Const: COMMON NORMALS: no acute distress and patient oriented x3 Resp: COMMON NORMALS: normal respiratory effort, No retractions, No use of accessory muscles and clear to auscultation bilaterally AUSCULTATION: clear to auscultation bilaterally Cardio: COMMON NORMALS: regular rate, regular rhythm, S1 normal heart sound present and S2 normal heart sound present RATE: regular rate RHYTHM: r egular rhythm HEART SOUNDS: S1 normal heart sound present and S2 normal heart sound present GI: COMMON NORMALS: Normal to inspection, nondistended, normoactive bowel sounds present and non-tender Extremity: COMMON NORMALS: no clubbing, cyanosis or edema, no calf tenderness and no pedal edema Neuro: COMMON NORMALS: patient oriented x3 Psych: COMMON NORMALS: mental status grossly normal Data 04/25/24 02:52 04/25/24 02:52 A&P Assessment and plan (1) Syncopal episodes: (2) Encounter for long-term use of opiate analgesic: (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, lumbar: (5) C5 cervical fracture: Qualifiers: Encounter type: initial encounter Fracture alignment: displaced F racture morphology: other fracture Fracture type: closed Qualified Code(s): S 12.490A - Other displaced fracture of fifth cervical vertebra, initial encounter for closed fracture (6) Dehydration: (7) Intractable pain: Plan Syncopal event -Likely combination of orthostatic hypotension, dehydration, polypharmacy Patient was profoundly orthostatic blood pressure dropped to 64/53 upon standing Did also take morphine and Lyrica that morning of his fall Cardiac echo CONCLUSIONS Normal left ventricular size and function with an estimated ejection fraction of 70 %. Normal chambers sizes. No significant valvular abnormality noted. Normal right heart and pulmonary pressures. Carotid artery ultrasound no acute finding D-dimer 11, no calf pain, no calf swelling, no sudden onset of shortness of breath, no hemoptysis, will monitor Keep patient on telemetry Check B12 and TSH within normal limits Serial troponin EKG No history of [place] or CHF in the past Patient stating that he took doses of Lyrica and morphine at a very short interval he is concerned about overdose No significant hemodynamic instability Intractable pain -Patient is chronically on morphine, Lyrica ? Pain control is proving to be difficult ? For now Dilaudid 1 mg IV push every 4 hours as needed next?if patient continues to have pain we will consider fentanyl patch Fall, over 6 feet C7-T3 fracture Cervical collar is on Spoke with trauma surgery who recommended nonoperative medical options for now Pain management Patient will need to keep the collar on for at least 6 to 8 weeks He will need clearance before he resumes his work which is physically challenging Diabetic neuropathy Continue Lyrica Chronic opioid use takes morphine at home 15 mg, follows up with pain management clinic at [facility], switch to IV Dilaudid due to intractable pain ROMA: Do not have baseline creatinine, monitor closely for now fluids overnight Request orthostatics Full code DVT prophylaxis: Heparin Continues to have intractable pain, continue IV Dilaudid, continue to monitor him closely, PT OT, severe back pain CT lumbar and thoracic spine, PT OT Attestations 2 Medical Necessity Statement*: Patient requires hospitalization for syncopal event, C7-T3 fracture, severe intractable pain Diagnoses Syncopal episodes R55 Encounter for long-term use of opiate analgesic Z79.891 Lumbar and sacral spondyloarthritis M47.817 Facet syndrome, lumbar M47.816 C5 cervical fracture S12.490A Encounter type: initial encounter Fracture alignment: displaced Fracture morphology: other fracture Fracture type: closed Dehydration E86.0 Intractable pain R52
[2024-04-26 16:18] LABS: Glucose Point of Care 150 mg/dL (70-110)
[2024-04-26 16:31] LABS: Basophils # 0.1 10^3/uL (0.0-0.1); Basophils % 0.6 %; Eosinophils # 0.3 10^3/uL (0.0-0.8); Eosinophils % 2.4 %; Lymphocytes % 27.2 %; Mean Corpuscular HGB Conc 31.8 g/dL (30-55); Mean Corpuscular Hemoglobin 28.3 pg (27-33); Mean Corpuscular Volume 89.1 fl (82-101); Monocytes % 9.2 %; Neutrophils # 6.65 10^3/uL (1.8-7.7); Neutrophils % 60.2 %; Nucleated Red Blood Cells % 0 %; Platelet Count 164 10^3/cmm (157-399); Red Blood Count 5.05 10^6/uL (3.85-5.65); Red Cell Distribution Width 12.8 % (12.1-15.1); White Blood Count 11.05 10^3/uL (3.29-11.43)
[2024-04-26 16:49] LABS: Alanine Aminotransferase 32 U/L (0-41); Albumin Level 3.6 g/dL (3.5-5.2); Alkaline Phosphatase 84 U/L (40-130); Blood Urea Nitrogen 11 mg/dL (8-23); Calcium 8.9 mg/dL (8.5-10.5); Carbon Dioxide 23 mmol/L (22-29); Chloride 101 mmol/L (98-107); Creatinine Clr Calc Pharmacy 86.9902; Globulin 3.5 g/dL (1.3-4.6); Glucose 164 mg/dL (65-115); Osmolality Calculated 287 mOsm/kg (285-295); Sodium 137 mmol/L (136-145); Total Bilirubin 0.8 mg/dL (0.15-1.2); Total Protein 7.1 g/dL (6.6-8.7)
[2024-04-26 16:59] LABS: Anion Gap 17.5 (5-19); Aspartate Amino Transferase 24 U/L (0-40); Potassium 4.5 mmol/L (3.5-5.1)
[2024-04-26 17:44] LABS: Creatine Phosphokinase 416 U/L (39-308)
[2024-04-26 20:34] LABS: Glucose Point of Care 150 mg/dL (70-110)
[2024-04-27] VITALS (13 sets, daily range): BP systolic 119–170; BP diastolic 65–80; PULSE 60–78; RESP 16–18; TEMP 36.4–37; O2SAT 90–94
[2024-04-27] MEDS: HYDROmorphone 1 mg/mL INJ 1 mL IVP ×4 (02:23→21:01)
[2024-04-27] MEDS: sodium chloride 0.9% 1,000 ML 75 ML IV (02:25)
[2024-04-27 05:13] LABS: Basophils # 0.1 10^3/uL (0.0-0.1); Basophils % 0.7 %; Eosinophils # 0.3 10^3/uL (0.0-0.8); Eosinophils % 2.9 %; Hematocrit 42.6 % (37-53); Lymphocytes # 2.6 10^3/uL (0.8-4.8); Lymphocytes % 25.3 %; Mean Corpuscular HGB Conc 32.6 g/dL (30-55); Mean Corpuscular Hemoglobin 28.3 pg (27-33); Mean Corpuscular Volume 86.6 fl (82-101); Mean Platelet Volume 10.2 fL (7.4-10.4); Monocytes # 0.9 10^3/uL (0.2-0.9); Monocytes % 8.4 %; Neutrophils # 6.52 10^3/uL (1.8-7.7); Neutrophils % 62.3 %; Nucleated Red Blood Cells % 0 %; Platelet Count 167 10^3/cmm (157-399); Red Blood Count 4.92 10^6/uL (3.85-5.65); Red Cell Distribution Width 12.8 % (12.1-15.1); White Blood Count 10.45 10^3/uL (3.29-11.43)
[2024-04-27 05:38] LABS: Creatine Phosphokinase 257 U/L (39-308)
[2024-04-27 05:40] LABS: Alanine Aminotransferase 28 U/L (0-41); Albumin Level 3.6 g/dL (3.5-5.2); Alkaline Phosphatase 78 U/L (40-130); Anion Gap 13.9 (5-19); Aspartate Amino Transferase 19 U/L (0-40); Blood Urea Nitrogen 12 mg/dL (8-23); Calcium 8.7 mg/dL (8.5-10.5); Carbon Dioxide 26 mmol/L (22-29); Chloride 104 mmol/L (98-107); Creatinine Clr Calc Pharmacy 86.9902; Globulin 3.3 g/dL (1.3-4.6); Glucose 167 mg/dL (65-115); Osmolality Calculated 294 mOsm/kg (285-295); Potassium 3.9 mmol/L (3.5-5.1); Sodium 140 mmol/L (136-145); Total Bilirubin 0.8 mg/dL (0.15-1.2); Total Protein 6.9 g/dL (6.6-8.7)
[2024-04-27 06:29] LABS: Glucose Point of Care 165 mg/dL (70-110)
[2024-04-27] MEDS: sennosides 8.6 mg Tablet PO ×2 (09:25→17:19)
[2024-04-27] MEDS: pregabalin 150 mg Capsule 300 MG PO ×2 (09:25→17:19)
[2024-04-27] MEDS: aspirin 81 mg EC Tablet PO (09:25)
[2024-04-27] MEDS: heparin 5,000 unit/mL INJ 1 mL 5000 UNIT SUBCUT ×2 (09:26→21:00)
[2024-04-27] MEDS: insulin glargine 100 units/1 mL 25 UNIT SUBCUT (09:26)
[2024-04-27] MEDS: atorvastatin 40 mg Tablet PO (09:26)
--- NOTE | 2024-04-27 09:27 | PC.CHAP ---
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 [x] Patient/Family/Request visit [] Outpatient visit [] Follow-up visit [] Physician referral [] Code/Alert [] Routine visit [] Staff referral [] Actively dying [] Patient sleeping [x] Family support [] [] Out of room [] Palliative care [] [] Receiving care in room [] Pre-surgical visit [] Trauma [] Long length of stay [] ICU visit [] Other: Relational/Emotional Strength [] Patient feels connected with others/family/visitors/staff [] Distress [] Loneliness/isolation [] Abandonment Spirituality of Patient [x] Person of Gladis [x Attends Restoration of their Gladis [x] Believes in Prayer [x] Reads Bible or Denominational materials [] There are Spiritual issues to be addressed Maintenance Painter Interventions [x] Prayer [x] Active listening [] Non-anxious presence [] Spiritual/emotional support [] Crisis/trauma care [] Spiritual counseling [] Bereavement support [] Provided bereavement packet [] Provided Bible/devotional materials [] Provided toy/stuffed animal, coloring book to patient or family member [] Provided Communion [] Anointing/[place] [] Salvation [x] Completed spiritual assessment [] Other: Impact on Illness or Injury [] Angry [] Fearful [] Anxious [] Often cries [] Exhaustion [] Unable to work [] Unable to attend yarsanism [] Unable to walk/stand [] Unable to read [] Unable to drive [] Unable to eat/drink [] Unable to sleep [] Unable to be with family [] Patient intubated [] Other: Summary Time spent with patient 15 min
[2024-04-27] MEDS: fentaNYL 12 mcg Patch 1 PATCH TRANSDERMA (10:28)
[2024-04-27] MEDS: ondansetron 2 mg/ML SDV 2 mL 4 MG IVP (10:30)
[2024-04-27 12:12] LABS: Glucose Point of Care 209 mg/dL (70-110)
--- NOTE | 2024-04-27 12:51 | PM.CONSULT ---
Providers/Reason For Consult Consulting Physician/Specialty*: Hospitalist Reason for Consult*: Cervical fracture Attending Physician: Silas Cedeño MD Primary Care Provider: Blade Sebastian MD History of Present Illness History of Present Illness Scotty Bro is a 83 year old male who fell sustained a C5 facet fracture. With minimal displacement. Patient is not complaining of any numbness or tingling down his arms nor did he at any time. He is not complaining of any weakness he is mainly just having pain. Currently he is in a cervical collar with with minimal padding. Will change him out to a new cervical collar Review of Systems Const: Denies: fever(s) Eyes: Denies: change in vision ENMT: Denies: throat pain Card: Denies: chest pain Resp: Denies: dyspnea GI: Denies: abdominal pain : Denies: flank pain Musc: Denies: neck pain Medications/Allergies Home Medications Medication Instructions Recorded Confirmed Last Taken Type aspirin 81 mg tablet,delayed 81 mg PO DAILY 10/27/19 04/24/24 12/14/19 History release atorvastatin 80 mg tablet 80 mg PO DAILY 10/27/19 04/24/24 12/14/19 History insulin glargine 100 unit/mL (3 80 unit SUBCUT DAILY 10/27/19 04/24/24 12/14/19 History mL) subcutaneous pen (Lantus Solostar U-100 Insulin) omeprazole 20 mg capsule,delayed 20 mg PO BID 10/27/19 04/24/24 12/15/19 History release methylcellulose (laxative) 500 mg 500 mg PO QDAY 10/29/19 04/24/24 12/14/19 History tablet (Fiber Laxative (methylcellulose)) sennosides 8.6 mg tablet (senna) 8.6 mg PO BID 12/14/19 04/24/24 12/14/19 History morphine 15 mg immediate release 15 mg PO Q8H PRN Pain 04/24/24 04/24/24 Unknown History tablet pregabalin 300 mg capsule 300 mg PO BID 04/24/24 04/24/24 Unknown History tirzepatide 12.5 mg/0.5 mL 12.5 mg SUBCUT Q7D 04/24/24 04/24/24 Unknown History subcutaneous pen injector (Mounjaro) Allergies Allergy/AdvReac Type Severity Reaction Status Date / Time metformin AdvReac Severe Unknown Verified 04/24/24 21:46 Sulfa (Sulfonamide AdvReac Mild ALGY-Rash Verified 04/24/24 21:46 Antibiotics) tadalafil [From Cialis] AdvReac Mild ADR-Back Verified 04/24/24 21:46 Pain Current Medications Generic Name Dose Route Start Last Admin Trade Name Freq PRN Reason Stop Dose Admin Aspirin 81 mg 04/25/24 09:00 04/27/24 09:25 Aspirin 81 Mg Ec Tablet PO 81 mg DAILY SEAN Administration Atorvastatin Calcium 40 mg 04/25/24 09:00 04/27/24 09:26 Atorvastatin 40 Mg Tablet PO 40 mg DAILY SEAN Administration Fentanyl 1 patch 04/27/24 10:30 04/27/24 10:28 Fentanyl 12 Mcg Patch TRANSDERMA 1 patch Q72H SEAN Administration Heparin Sodium (Porcine) 5,000 unit 04/24/24 21:01 04/27/24 09:26 Heparin 5,000 Unit/Ml Inj 1 Ml SUBCUT 5,000 unit Q12H SEAN Administration Hydromorphone HCl 1 mg 04/25/24 08:21 04/27/24 06:14 Hydromorphone 1 Mg/Ml Inj 1 Ml IVP 1 mg Q4H PRN Administration PAIN Sodium Chloride 1,000 mls @ 75 mls/hr 04/24/24 21:01 04/27/24 02:25 Sodium Chloride 0.9% IV 75 mls/hr .[id number] SEAN Administration Insulin Glargine 25 unit 04/25/24 10:15 04/27/24 09:26 Insulin Glargine 100 Units/1 Ml SUBCUT 25 unit DAILY SEAN Administration Insulin Human Lispro 0 unit 04/25/24 08:00 04/27/24 09:23 Insulin Lispro 100 Unit/1 Ml SUBCUT Not Given TIDWM [facility] Protocol Lanolin 1 applic 04/25/24 12:58 04/25/24 13:17 Lanolin Oint 7 Gm TOPICAL 1 applic PRN PRN Administration DRYNESS Ondansetron HCl 4 mg 04/24/24 21:01 04/27/24 10:30 Ondansetron 2 Mg/Ml Sdv 2 Ml IVP 4 mg Q6H PRN Administration NAUSEA AND VOMITING Pregabalin 300 mg 04/25/24 09:00 04/27/24 09:25 Pregabalin 150 Mg Capsule PO 300 mg BID SEAN Administration Senna 8.6 mg 04/25/24 09:00 04/27/24 09:25 Sennosides 8.6 Mg Tablet PO 8.6 mg BID SEAN Administration PFSH Acute PFSH: Medical History (Updated 04/26/24 @ 15:54 by Silas Cedeño MD) Opioid contract exists Encounter for long-term use of opiate analgesic DDD (degenerative disc disease), lumbar Facet syndrome, lumbar Lumbar and sacral spondyloarthritis Hyperlipidemia Peripheral neuropathy Low back pain Erectile dysfunction Diabetes Testosterone deficiency Hypertension Surgical History H/O toe surgery right big toe H/O colonoscopy 12/14/2019: Normal, poor prep, repeat in 5 years H/O elbow surgery left with hardware placed and removed H/O circumcision Family History Brother Cancer lymphoma Other Diabetes Denies family history of Anesthesia complication Bleeding disorder Social History Smoking and tobacco/nicotine status: never used tobacco/nicotine Second hand smoke exposure: No Alcohol intake: never Substance/Drug Use: never Household members: spouse Marital status: Current occupational status: retired Vitals/I&O/Wt Last Vital Signs Temp 98.3 F 04/27/24 12:00 Pulse 78 04/27/24 12:00 Resp 18 04/27/24 12:00 BP 166/74 04/27/24 12:00 Pulse Ox 93 04/27/24 12:00 O2 Del Method Room Air 04/27/24 12:00 O2 Flow Rate 2 04/26/24 08:44 04/26/24 04/27/24 04/27/24 22:59 06:59 14:59 Intake Total 480 / 2186.25 1113.75 / 3300.00 240 / 240 Output Total 700 / 1825 600 / 2425 200 / 200 Balance -220 / 361.25 513.75 / 875.00 40 / 40 Weight last 48 hrs Weight 220 lb 4.8 oz Weight 219 lb 1 oz Physical Exam Narrative: Patient is a lot of pain problems related to call. At this point we will change it out. He has no weakness 5 5 strength in his upper extremities. No numbness or tingling Data 04/27/24 04:48 04/27/24 04:48 A&P Assessment and plan (1) C5 cervical fracture: Will change out his collar. At this point patient can ambulate and work with physical therapy. Put an order for physical therapy to change out his cervical collar. Qualifiers: Encounter type: initial encounter Fracture alignment: displaced Fracture morphology: other fracture Fracture type: closed Qualified Code(s): S12.490A - Other displaced fracture of fifth cervical vertebra, initial encounter for closed fracture Coding Level of Care Code Acute Code for [facility] Fwd Diagnoses C5 cervical fracture S12.490A Encounter type: initial encounter Fracture alignment: displaced Fracture morphology: other fracture Fracture type: closed
[2024-04-27] MEDS: insulin lispro 100 unit/1 mL SUBCUT (12:55)
--- NOTE | 2024-04-27 14:23 | PM.PN ---
Subjective Subjective: Patient was seen this morning, he continues to have severe pain, he tells me that the Dilaudid does help, but when the Dilaudid starts to wear off, he has severe pain, Vitals/I&O/Wt Last Vital Signs Temp 98.3 F 04/27/24 12:00 Pulse 78 04/27/24 12:00 Resp 18 04/27/24 12:00 BP 166/74 04/27/24 12:00 Pulse Ox 93 04/27/24 12:00 O2 Del Method Room Air 04/27/24 12:00 O2 Flow Rate 2 04/26/24 08:44 04/26/24 04/27/24 04/27/24 22:59 06:59 14:59 Intake Total 480 / 2186.25 1113.75 / 3300.00 240 / 240 Output Total 700 / 1825 600 / 2425 200 / 200 Balance -220 / 361.25 513.75 / 875.00 40 / 40 Weight last 48 hrs Weight 99.926 kg Weight 99.365 kg Physical Exam Const: COMMON NORMALS: no acute distress and patient oriented x3 Resp: COMMON NORMALS: normal respiratory effort, No retractions, No use of accessory muscles and clear to auscultation bilaterally AUSCULTATION: clear to auscultation bilaterally Cardio: COMMON NORMALS: regular rate, regular rhythm, S1 normal heart sound present and S2 normal heart sound present RATE: regular rate RHYTHM: regular rhythm HEART SOUNDS: S1 normal heart sound present and S2 normal heart sound present GI: COMMON NORMALS: Normal to inspection, nondistended, normoactive bowel sounds present and non-tender Extremity: COMMON NORMALS: no pedal edema Neuro: COMMON NORMALS: patient oriented x3 Psych: COMMON NORMALS: mental status grossly normal Data 04/27/24 04:48 04/27/24 04:48 A&P Assessment and plan (1) Syncopal episodes: (2) Encounter for long-term use of opiate analgesic: (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, lumbar: (5) C5 cervical fracture: Qualifiers: Encounter type: initial encounter Fracture alignment: displaced Fracture morphology: other fracture Fracture type: closed Qualified Code(s): S12.490A - Other displaced fracture of fifth cervical vertebra, initial encounter for closed fracture (6) Dehydration: (7) Intractable pain: Plan Syncopal event -Likely combination of orthostatic hypotension, dehydration, polypharmacy Patient was profoundly orthostatic blood pressure dropped to 64/53 upon standing Did also take morphine and Lyrica that morning of his fall Cardiac echo CONCLUSIONS Normal left ventricular size and function with an estimated ejection fraction of 70 %. Normal chambers sizes. No significant valvular abnormality noted. Normal right heart and pulmonary pressures. Carotid artery ultrasound no acute finding D-dimer 11, no calf pain, no calf swelling, no sudden onset of shortness of breath, no hemoptysis, will monitor Keep patient on telemetry Check B12 and TSH within normal limits Serial troponin EKG No history of [place] or CHF in the past Patient stating that he took doses of Lyrica and morphine at a very short interval he is concerned about overdose No significant hemodynamic instability Intractable pain -Patient is chronically on morphine, Lyrica ? Pain control is proving to be difficult ? For now Dilaudid 1 mg IV push every 4 hours as needed next?if patient continues to have pain we will consider fentanyl patch Fall, over 6 feet C7-T3 fracture Cervical collar is on Spoke with trauma surgery who recommended nonoperative medical options for now Pain management Patient will need to keep the collar on for at least 6 to 8 weeks He will need clearance before he resumes his work which is physically challenging Diabetic neuropathy Continue Lyrica Chronic opioid use takes morphine at home 15 mg, follows up with pain management clinic at [facility], switch to IV Dilaudid due to intractable pain ROMA: Do not have baseline creatinine, monitor closely for now fluids overnight Request orthostatics Full code DVT prophylaxis: Heparin Continues intractable pain, will start him on low-dose fentanyl 12 mcg patch, in addition to Dilaudid, will monitor closely, he is not opiate na?ve, as he receives 45 mg of morphine p.o. daily, will consult Dr. Everett, PT OT Attestations Medical Necessity Statement*: Patient requires hospitalization for intractable pain, after a fall over 6 feet, with cervical neck fracture, intractable pain, requiring hospitalization for pain control, syncopal episode Diagnoses Syncopal episodes R55 Encounter for long-term use of opiate analgesic Z79.891 Lumbar and sacral spondyloarthritis M47.817 Facet syndrome, lumbar M47.816 C5 cervical fracture S12.490A Encounter type: initial encounter Fracture alignment: displaced Fracture morphology: other fracture Fracture type: closed Dehydration E86.0 Intractable pain R52
[2024-04-27 16:48] LABS: Glucose Point of Care 143 mg/dL (70-110)
[2024-04-27 20:36] LABS: Glucose Point of Care 170 mg/dL (70-110)
[2024-04-28] VITALS (14 sets, daily range): BP systolic 105–157; BP diastolic 63–78; PULSE 57–89; RESP 16–18; TEMP 36.8–37.1; O2SAT 91–95
[2024-04-28] MEDS: HYDROmorphone 1 mg/mL INJ 1 mL IVP ×2 (02:03→06:25)
[2024-04-28 05:52] LABS: Basophils # 0.1 10^3/uL (0.0-0.1); Basophils % 0.7 %; Eosinophils # 0.3 10^3/uL (0.0-0.8); Eosinophils % 3.1 %; Hematocrit 45.9 % (37-53); Lymphocytes # 3.1 10^3/uL (0.8-4.8); Lymphocytes % 30.6 %; Mean Corpuscular HGB Conc 32.2 g/dL (30-55); Mean Corpuscular Hemoglobin 28.2 pg (27-33); Mean Corpuscular Volume 87.4 fl (82-101); Mean Platelet Volume 9.7 fL (7.4-10.4); Monocytes # 0.9 10^3/uL (0.2-0.9); Monocytes % 8.8 %; Neutrophils # 5.67 10^3/uL (1.8-7.7); Neutrophils % 56.3 %; Nucleated Red Blood Cells % 0 %; Platelet Count 190 10^3/cmm (157-399); Red Blood Count 5.25 10^6/uL (3.85-5.65); Red Cell Distribution Width 12.8 % (12.1-15.1); White Blood Count 10.07 10^3/uL (3.29-11.43)
[2024-04-28 06:11] LABS: Alanine Aminotransferase 25 U/L (0-41); Albumin Level 3.5 g/dL (3.5-5.2); Alkaline Phosphatase 80 U/L (40-130); Anion Gap 18.9 (5-19); Aspartate Amino Transferase 15 U/L (0-40); Blood Urea Nitrogen 16 mg/dL (8-23); Calcium 8.9 mg/dL (8.5-10.5); Carbon Dioxide 25 mmol/L (22-29); Chloride 102 mmol/L (98-107); Creatinine Clr Calc Pharmacy 77.5289; Globulin 3.4 g/dL (1.3-4.6); Glucose 137 mg/dL (65-115); Osmolality Calculated 297 mOsm/kg (285-295); Potassium 3.9 mmol/L (3.5-5.1); Sodium 142 mmol/L (136-145); Total Bilirubin 0.7 mg/dL (0.15-1.2); Total Protein 6.9 g/dL (6.6-8.7)
[2024-04-28 06:11] LABS: Glucose Point of Care 119 mg/dL (70-110)
[2024-04-28 06:12] LABS: Creatine Phosphokinase 128 U/L (39-308)
--- NOTE | 2024-04-28 06:54 | P.PN_ITS ---
Subjective 2 Subjective: Collar was changed out patient stated the pain is improved with the collar. Baseline pain. Vitals/I&O/Wt Last Vital Signs Temp 98.8 F 04/28/24 04:00 Pulse 65 04/28/24 05:21 Resp 18 04/28/24 06:25 BP 105/67 04/28/24 04:00 Pulse Ox 92 04/28/24 04:00 O2 Del Method Room Air 04/28/24 04:00 O2 Flow Rate 1 04/27/24 20:00 04/27/24 04/27/24 04/28/24 14:59 22:59 06:59 Intake Total 240 / 240 1600 / 1840 120 / 1960 Output Total 200 / 200 550 / 750 750 / 1500 Balance 40 / 40 1050 / 1090 -630 / 460 Weight last 48 hrs Weight 220 lb 11.2 oz Weight 220 lb 4.8 oz Physical Exam 2 Narrative: Collar in good position. At this point patient's pain is better controlled Data 04/28/24 05:41 04/28/24 05:41 A&P Assessment and plan (1) Sternal fracture: Continue treatment with C5 fracture. Plan to see in the office in 1 to 2 weeks. Qualifiers: Encounter type: initial encounter Fracture type: closed Sternal location: body of sternum Qualified Code(s): S22.22XA - Fracture of body of sternum, initial encounter for closed fracture Attestations 2 Medical Necessity Statement*: Per primary service Coding Level of Care Code Acute Code for [facility] Fwd Diagnoses Sternal fracture S22.22XA Encounter type: initial encounter Fracture type: closed Sternal location: body of sternum
[2024-04-28] MEDS: aspirin 81 mg EC Tablet PO (08:23)
[2024-04-28] MEDS: pregabalin 150 mg Capsule 300 MG PO ×2 (08:23→17:12)
[2024-04-28] MEDS: atorvastatin 40 mg Tablet PO (08:23)
[2024-04-28] MEDS: sennosides 8.6 mg Tablet PO (08:23)
[2024-04-28] MEDS: heparin 5,000 unit/mL INJ 1 mL 5000 UNIT SUBCUT ×2 (08:25→20:19)
[2024-04-28] MEDS: insulin glargine 100 units/1 mL 25 UNIT SUBCUT (08:25)
[2024-04-28] MEDS: fentaNYL 25 mcg Patch 1 PATCH TRANSDERMA (10:28)
[2024-04-28 10:44] LABS: Glucose Point of Care 218 mg/dL (70-110)
[2024-04-28] MEDS: insulin lispro 100 unit/1 mL SUBCUT (11:15)
[2024-04-28 17:13] LABS: Glucose Point of Care 131 mg/dL (70-110)
--- NOTE | 2024-04-28 17:15 | PC.NURSE ---
This nurse removed Fentanyl patch at [address] Judd verbal orders as pt has c/o feeling like hes crawling with bugs and feeling disoriented. Pt has PRN morphine should he need it for pain.
--- NOTE | 2024-04-28 17:19 | XRR_ITS ---
PROCEDURE INFORMATION: Exam: XR Chest Exam date and time: 04/28/2024 6:22 PM Age: 83 years old Clinical indication: Other: AMS TECHNIQUE: Imaging protocol: Radiologic exam of the chest. Views: 1 view. COMPARISON: CT chest abdpel [id number] 04/24/2024 4:37 PM FINDINGS: Lungs: The lungs are clear. No pulmonary consolidation. Pleural spaces: No pleural effusion or pneumothorax. Heart/Mediastinum: Patient is rotated. Heart size is poorly evaluated. The cardiomediastinal silhouette is grossly unremarkable. Bones/joints: No acute osseous abnormalities are seen. XR/XR chest 1V portable [id number] IMPRESSION: No acute cardiopulmonary disease.
--- NOTE | 2024-04-28 17:42 | ECG_ITS ---
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 Measurements Intervals [place] Rate: 76 P: 1 CA: 229 QRS: -18 QRSD: 111 T: 36 QT: 399 QTc: 449 Interpretive Statements SINUS RHYTHM WITH FIRST DEGREE AV BLOCK MODERATE INTRAVENTRICULAR CONDUCTION DELAY [110+ ms QRS DURATION] Compared to ECG 04/24/2024 16:06:36 Intraventricular conduction delay now present Indeterminate axis no longer present Incomplete right bundle-branch block no longer present Electronically Signed On 04-28-2024 21:33:18 CDT by Sanam Boswell M.D. [email or web address]
[2024-04-28 17:49] LABS: ABG PCO2 39.9 mmHg (35-45); ABG PH Result 7.47 (7.35-7.45); Arterial Blood Gas Hematocrit 46.4 % (42-52); Base Excess ABG 5.2 mmol/L (-2.0-2.0); Blood Gas Allen Test Pos; Blood Gas LPM 0.5 %; Blood Gas Operator Identificat WALCI; Blood Gas Sample Site Radial, right; Blood Gas Sample Type Arterial; HCO3 ABG 29.2 mmol/L (22-26); Oxygen Device NC; PO2 ABG 65.2 mmHg (80.0-100.0)
[2024-04-28] MEDS: morphine IR 15 mg Tablet PO (18:25)
[2024-04-28 18:32] LABS: Basophils # 0.1 10^3/uL (0.0-0.1); Basophils % 0.6 %; Eosinophils # 0.3 10^3/uL (0.0-0.8); Eosinophils % 2.5 %; Lymphocytes # 2.4 10^3/uL (0.8-4.8); Lymphocytes % 22.8 %; Mean Corpuscular HGB Conc 32.6 g/dL (30-55); Mean Corpuscular Hemoglobin 28.1 pg (27-33); Mean Corpuscular Volume 86.3 fl (82-101); Mean Platelet Volume 9.9 fL (7.4-10.4); Monocytes # 0.8 10^3/uL (0.2-0.9); Monocytes % 7.9 %; Neutrophils # 6.94 10^3/uL (1.8-7.7); Neutrophils % 65.7 %; Nucleated Red Blood Cells % 0 %; Platelet Count 240 10^3/cmm (157-399); Red Blood Count 5.33 10^6/uL (3.85-5.65); Red Cell Distribution Width 12.8 % (12.1-15.1); White Blood Count 10.54 10^3/uL (3.29-11.43)
--- NOTE | 2024-04-28 18:42 | P.PN_ITS ---
Subjective 2 Subjective: - Patient was examined this morning, he is on the 12 mcg fentanyl patch, he tells me that he continues to have severe pain despite being on the 12 mcg fentanyl patch, we discussed increasing the dose -12 mcg fentanyl patch was removed he wa s placed on 25 mcg fentanyl patch and monitored -His home morphine 15 mg p.o. every 6 ho urs as needed for breakthrough pain ? Will stop Dilaudid -He is about to ambulate, but up with am bulation his pain goes to 7 out of 10 and it is very severe -He was monitored throughout the afterno on, on 25 mcg fentanyl patch, monitor for pain control, -In the afternoon according to nursing s taff he started to report episodes of confusion, he reports feels like bugs crawling on him, he feels disoriented ? 25 mcg fentanyl patch was removed due to concerns for adverse reaction ? Will monitor his mentation off the fentanyl patch ? I have repeated a chest x-ray, UA, CBC, CMP to look for sources of infection ? Monitor mentation closely, neurochecks, NIH stroke scale, Vitals/I&O/Wt Last Vital Signs Temp 98.3 F 04/28/24 15:47 Pulse 75 04/28/24 15:47 Resp 18 04/28/24 18:25 BP 157/78 04/28/24 15:47 Pulse Ox 95 04/28/24 18:25 O2 Del Method Room Air 04/28/24 15:47 O2 Flow Rate 1 04/28/24 09:01 04/28/24 04/28/24 04/28/24 06:59 14:59 22:59 Intake Total 120 / 1960 360 / 360 240 / 600 Output Total 750 / 1500 Balance -630 / 460 360 / 360 240 / 600 Weight last 48 hrs Weight 100.108 kg Weight 99.926 kg Physical Exam 2 Const: COMMON NORMALS: no acute distress and patient oriented x3 Resp: COMMON NORMALS: normal respiratory effort, No retractions, No use of accessory muscles and clear to auscultation bilaterally AUSCULTATION: clear to auscultation bilaterally Cardio: COMMON NORMALS: regular rate, regular rhythm, S1 normal heart sound present and S2 normal heart sound present RATE: regular rate RHYTHM: r egular rhythm HEART SOUNDS: S1 normal heart sound present and S2 normal heart sound present GI: COMMON NORMALS: Normal to inspection, nondistended, normoactive bowel sounds present, non-tender and no bruits Extremity: COMMON NORMALS: no pedal edema Neuro: COMMON NORMALS: patient oriented x3 Psych: COMMON NORMALS: mental status grossly normal Data 04/28/24 18:10 04/28/24 05:41 A&P Assessment and plan (1) Syncopal episodes: (2) Encounter for long-term use of opiate analgesic: (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, lumbar: (5) C5 cervical fracture: Qualifiers: Encounter type: initial encounter Fracture alignment: displaced F racture morphology: other fracture Fracture type: closed Qualified Code(s): S 12.490A - Other displaced fracture of fifth cervical vertebra, initial encounter for closed fracture (6) Dehydration: (7) Intractable pain: Plan Syncopal event -Likely combination of orthostatic hypotension, dehydration, polypharmacy Patient was profoundly orthostatic blood pressure dropped to 64/53 upon standing Did also take morphine and Lyrica that morning of his fall Cardiac echo CONCLUSIONS Normal left ventricular size and function with an estimated ejection fraction of 70 %. Normal chambers sizes. No significant valvular abnormality noted. Normal right heart and pulmonary pressures. Carotid artery ultrasound no acute finding D-dimer 11, no calf pain, no calf swelling, no sudden onset of shortness of breath, no hemoptysis, will monitor Keep patient on telemetry Check B12 and TSH within normal limits Serial troponin EKG No history of NH or CHF in the past Patient stating that he took doses of Lyrica and morphine at a very short interval he is concerned about overdose No significant hemodynamic instability Intractable pain -Patient is chronically on morphine, Lyrica ? Pain control is proving to be difficult ? Fall, over 6 feet C7-T3 fracture Cervical collar is on Spoke with trauma surgery who recommended nonoperative medical options for now Pain management Patient will need to keep the collar on for at least 6 to 8 weeks He will need clearance before he resumes his work which is physically challenging Diabetic neuropathy Continue Lyrica Chronic opioid use takes morphine at home 15 mg, follows up with pain management clinic at [facility], switch to IV Dilaudid due to intractable pain ROMA: Do not have baseline creatinine, monitor closely for now fluids overnight Request orthostatics Full code DVT prophylaxis: Heparin - Patient was examined this morning, he is on the 12 mcg fentanyl patch, he tells me that he continues to have severe pain despite being on the 12 mcg fentanyl patch, we discussed increasing the dose -12 mcg fentanyl patch was removed he was placed on 25 mcg fentanyl patch and monitored -His home morphine 15 mg p.o. every 6 hours as needed for breakthrough pain ? Will stop Dilaudid -He is about to ambulate, but up with ambulation his pain goes to 7 out of 10 and it is very severe -He was monitored throughout the afternoon, on 25 mcg fentanyl patch, monitor for pain control, -In the afternoon according to nursing staff he started to report episodes of confusion, he reports feels like bugs crawling on him, he feels disoriented ? 25 mcg fentanyl patch was removed due to concerns for adverse reaction ? Will monitor his mentation off the fentanyl patch ? I have repeated a chest x-ray, UA, CBC, CMP to look for sources of infection ? Monitor mentation closely, neurochecks, NIH stroke scale, Attestations 2 Medical Necessity Statement*: Patient requires hospitalizations for episodes of confusion, intractable pain, requiring inpatient evaluation, Diagnoses Syncopal episodes R55 Encounter for long-term use of opiate analgesic Z79.891 Lumbar and sacral spondyloarthritis M47.817 Facet syndrome, lumbar M47.816 C5 cervical fracture S12.490A Encounter type: initial encounter Fracture alignment: displaced Fracture morphology: other fracture Fracture type: closed Dehydration E86.0 Intractable pain R52
[2024-04-28 18:46] LABS: Troponin(5th) Baseline 14 ng/L (0-15)
[2024-04-28 18:47] LABS: Lactic Sepsis W/Reflex 1.3 mmol/L (0.5-2.2)
[2024-04-28 18:55] LABS: Alanine Aminotransferase 26 U/L (0-41); Albumin Level 4.1 g/dL (3.5-5.2); Alkaline Phosphatase 89 U/L (40-130); Anion Gap 14.9 (5-19); Aspartate Amino Transferase 15 U/L (0-40); Blood Urea Nitrogen 18 mg/dL (8-23); C Reactive Protein 48.6 mg/L (0.0-4.9); Calcium 9.5 mg/dL (8.5-10.5); Carbon Dioxide 30 mmol/L (22-29); Chloride 99 mmol/L (98-107); Creatinine Clr Calc Pharmacy 77.5952; Globulin 3.1 g/dL (1.3-4.6); Glucose 149 mg/dL (65-115); Osmolality Calculated 295 mOsm/kg (285-295); Potassium 3.9 mmol/L (3.5-5.1); Sodium 140 mmol/L (136-145); Total Bilirubin 0.7 mg/dL (0.15-1.2); Total Protein 7.2 g/dL (6.6-8.7)
[2024-04-28 18:55] LABS: Add Urine Microscopic? NO; Charge for UA Resulting for Rev
[2024-04-28 19:00] LABS: Bilirubin Urine Neg (Negative); Blood Urine Neg (Negative); Glucose Urine UA Norm (Normal); Ketones Urine Negative (Negative); Leukocyte Esterase Urine Negative (Negative); Nitrate Urine Negative (Negative); Protein Urine Neg (Negative); Specific Gravity, Urine 1.015 (1.005-1.030); Urine Appearance Clear (CLEAR); Urine Color Yellow (Yellow); Urobilinogen Urine Norm (Negative); pH Urine 7 (5-7)
--- NOTE | 2024-04-28 19:20 | ECG_ITS ---
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 Measurements Intervals [place] Rate: 85 P: -16 IN: 216 QRS: 10 QRSD: 101 T: 27 QT: 388 QTc: 463 Interpretive Statements SINUS RHYTHM WITH FIRST DEGREE AV BLOCK Compared to ECG 04/28/2024 17:42:36 Intraventricular conduction delay no longer present Electronically Signed On 04-28-2024 21:40:09 CDT by Sanam Boswell M.D. [id number]
[2024-04-28 20:58] LABS: Glucose Point of Care 163 mg/dL (70-110)
[2024-04-28 20:58] LABS: Troponin 5 2HR 13.52 ng/L (0-15)
[2024-04-28 20:59] LABS: Troponin 5 2HR Delta -0.48 ABS# (0-10)
--- NOTE | 2024-04-28 23:20 | ECG_ITS ---
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 Measurements Intervals [place] Rate: 72 P: -4 [place]: 263 QRS: 6 QRSD: 101 T: 28 QT: 398 QTc: 436 Interpretive Statements SINUS RHYTHM WITH FIRST DEGREE AV BLOCK Compared to ECG 04/28/2024 20:17:02 No significant changes Electronically Signed On 04-29-2024 16:43:02 CDT by Santiago Howell M.D. [email or web address] medical [id number]
[2024-04-29] VITALS (12 sets, daily range): BP systolic 120–145; BP diastolic 60–81; PULSE 72–86; RESP 16–18; TEMP 36.4–37; O2SAT 88–98
[2024-04-29] MEDS: morphine IR 15 mg Tablet PO ×3 (00:52→13:27)
[2024-04-29 01:04] LABS: Troponin 5 6HR 14.42 ng/L (0-15); Troponin 5 6HR Delta 0.42 ng/L (0-12)
[2024-04-29 05:09] LABS: Basophils # 0.1 10^3/uL (0.0-0.1); Basophils % 0.8 %; Eosinophils # 0.3 10^3/uL (0.0-0.8); Eosinophils % 2.7 %; Hematocrit 44.2 % (37-53); Lymphocytes # 2.9 10^3/uL (0.8-4.8); Mean Corpuscular HGB Conc 32.4 g/dL (30-55); Mean Corpuscular Hemoglobin 27.8 pg (27-33); Mean Corpuscular Volume 85.8 fl (82-101); Mean Platelet Volume 9.6 fL (7.4-10.4); Monocytes # 0.8 10^3/uL (0.2-0.9); Monocytes % 7.7 %; Neutrophils # 5.98 10^3/uL (1.8-7.7); Neutrophils % 59.4 %; Nucleated Red Blood Cells % 0 %; Platelet Count 222 10^3/cmm (157-399); Red Blood Count 5.15 10^6/uL (3.85-5.65); Red Cell Distribution Width 12.7 % (12.1-15.1); White Blood Count 10.05 10^3/uL (3.29-11.43)
[2024-04-29 05:34] LABS: Alanine Aminotransferase 21 U/L (0-41); Albumin Level 3.6 g/dL (3.5-5.2); Alkaline Phosphatase 83 U/L (40-130); Anion Gap 17.7 (5-19); Aspartate Amino Transferase 13 U/L (0-40); Blood Urea Nitrogen 17 mg/dL (8-23); Carbon Dioxide 25 mmol/L (22-29); Chloride 103 mmol/L (98-107); Creatinine Clr Calc Pharmacy 75.8893; Globulin 3.2 g/dL (1.3-4.6); Glucose 150 mg/dL (65-115); Osmolality Calculated 298 mOsm/kg (285-295); Potassium 3.7 mmol/L (3.5-5.1); Sodium 142 mmol/L (136-145); Total Bilirubin 0.7 mg/dL (0.15-1.2); Total Protein 6.8 g/dL (6.6-8.7)
[2024-04-29 06:17] LABS: Glucose Point of Care 144 mg/dL (70-110)
[2024-04-29] MEDS: atorvastatin 40 mg Tablet PO (08:00)
[2024-04-29] MEDS: insulin lispro 100 unit/1 mL SUBCUT ×2 (08:00→13:28)
[2024-04-29] MEDS: aspirin 81 mg EC Tablet PO (08:01)
[2024-04-29] MEDS: sennosides 8.6 mg Tablet PO (08:01)
[2024-04-29] MEDS: pregabalin 150 mg Capsule 300 MG PO (08:01)
[2024-04-29] MEDS: heparin 5,000 unit/mL INJ 1 mL 5000 UNIT SUBCUT (08:01)
[2024-04-29] MEDS: insulin glargine 100 units/1 mL 25 UNIT SUBCUT (09:07)
--- NOTE | 2024-04-29 09:41 | PC.SOCIAL ---
IMM Update Pg. 2 of IMM Updated and reviewed with patient, who verbalized understanding. Copy provided.
--- NOTE | 2024-04-29 10:59 | PM.DCS ---
Discharge Providers Date of Admission: 04/26/24 10:03 Date of Discharge: April 29, 2024 Attending Provider at Admission: Atiya Kerr MD Attending Provider at Discharge: Silas Cedeño MD Primary Care Provider: Blade Sebastian MD Diagnoses at Discharge Discharge Diagnosis (1) Syncopal episodes: Status: Acute (2) Encounter for long-term use of opiate analgesic: Status: Chronic (3) Lumbar and sacral spondyloarthritis: Status: Chronic (4) Facet syndrome, lumbar: Status: Chronic (5) C5 cervical fracture: Status: Acute Qualifiers: Encounter type: initial encounter Fracture alignment: displaced Fracture morphology: other fracture Fracture type: closed Qualified Code(s): S12.490A - Other displaced fracture of fifth cervical vertebra, initial encounter for closed fracture (6) Dehydration: Status: Acute (7) Intractable pain: Status: Acute Reason for Visit Reason for Visit: Fell 6ft hurting all over Hospital Course Hospital Course Scotty Bro is a 83 year old male who is physically active, does not have any cardiac history, takes morphine and Lyrica for back pain and diabetic neuropathy, patient has significant cardiac history, was loading his window AC in his semitruck when he experienced syncopal event. Patient is stating that last night he was experiencing significant burning in his feet related to neuropathy he took morphine and Lyrica and repeated the dose in the morning. When he woke up he was not experiencing any chest pain shortness of breath nausea vomiting, he went out to load his semitrailer. Patient walked out from one of the side doors of the truck as soon as he came in front of the truck he passed out. He did not express any warning symptoms. Patient thinks he was just dehydrated. He did not experience any seizure related activity. In the ER I have requested orthostatics hypotension, patient looks dehydrated Trauma workup revealed old compression deformity C6-T3 Acute fracture of right C5 facet, C6 ER physician spoke with the emergency trauma surgeon at [facility] and neurosurgeon they recommended nonoperative options such as pain management, keeping the cervical collar on for at least 6 to 8 weeks and then follow-up with the trauma surgeon outpatient, Patient was admitted to [facility] for intractable pain, C7-T3 fracture, sternal fracture, diffuse musculoskeletal pain, rib pain For patient's C7 T3 fracture, trauma surgery was contacted at tertiary level center, they recommended medical management, Dr. Everett here at [facility] saw patient, recommended cervical collar, discharged with close follow-up with Dr. Everett as outpatient. Sternal fracture, medical management Multiple pain complaints, diffuse pain, medical management Rib pain, CTs of the chest do not show any evidence of rib fracture however he he might have a rib fracture that might show up later on on imaging, or even have bruised ribs. On examination today, he does have crackles in his right lung base, concerning for developing pneumonia, no fevers overnight, I will discharge him on Augmentin, albuterol, with incentive spirometer. I had a detailed discussion with him that he is likely developing a pneumonia and is a high risk of developing worsening pneumonia if he continues to remain in bed, and continues to not move. I advised for him to use his incentive spirometer every hour, ambulate every hour, take antibiotics as prescribed use albuterol as needed. If patient sudden develops calf pain or calf swelling or hemoptysis immediately go to emergency room as this is an indicator of life-threatening blood clots. If he develops any fevers, chills, shortness of breath, wheezing, please come back to the hospital as this could be indicators of worsening pneumonia Patient had a prolonged hospitalization due to intractable pain, requiring optimization of patient's pain control initially managed on IV Dilaudid, due to persistent pain was transition to fentanyl patch, however had hallucinations on fentanyl patch which resulted in discontinuation of fentanyl patch. Patient uses morphine 15 mg p.o. every 8 hours as needed for his chronic back pain at home, so he has a higher pain tolerance. He was stabilized on his home regimen of morphine 15 mg but I increase the frequency to every 6 hours. He was monitored here in the hospital, pain is well-controlled, advised him to use his morphine 15 mg p.o. every 6 hours as needed sparingly, do not drive or operate heavy machinery or drink while taking medication. Do not use morphine with any other controlled substances. Monitor very closely if there is any concerns for opiate overdose use Narcan, and call 911. Will have him follow-up with his pain medicine physician as outpatient. Syncopal event -Likely combination of orthostatic hypotension, dehydration, polypharmacy Patient was profoundly orthostatic blood pressure dropped to 64/53 upon standing, received fluids during his hospitalization, orthostatic hypotension has resolved Did also take morphine and Lyrica that morning of his fall Cardiac echo CONCLUSIONS Normal left ventricular size and function with an estimated ejection fraction of 70 %. Normal chambers sizes. No significant valvular abnormality noted. Normal right heart and pulmonary pressures. Carotid artery ultrasound no acute finding D-dimer 11, no calf pain, no calf swelling, no sudden onset of shortness of breath, no hemoptysis, Keep patient on telemetry, no acute events Check B12 and TSH within normal limits Serial troponin, no significant delta troponin No history of [place] or CHF in the past -Advised to use morphine sparingly, and do not use with Lyrica at the same time, to avoid the risk of overdose Follow-up with Dr. Everett as outpatient Is follow-up with pain management as outpatient follow-up with primary care provider as outpatient Physical Exam Const: COMMON NORMALS: no acute distress and patient oriented x3 OTHER: Cervical collar in place Resp: COMMON NORMALS: normal respiratory effort, No retractions, No use of accessory muscles and clear to auscultation bilaterally AUSCULTATION: clear to auscultation bilaterally Cardio: COMMON NORMALS: regular rate, regular rhythm, S1 normal heart sound present and S2 normal heart sound present RATE: regular rate RHYTHM: regular rhythm HEART SOUNDS: S1 normal heart sound present and S2 normal heart sound present GI: COMMON NORMALS: Normal to inspection, nondistended, normoactive bowel sounds present and non-tender Extremity: COMMON NORMALS: no pedal edema Neuro: COMMON NORMALS: patient oriented x3 Psych: COMMON NORMALS: mental status grossly normal Discharge Data Studies Completed and Pending Completed Studies During Hospitalization Category Date Time Status CT cervical spin wo con* [id number] Stat Cat Scan 04/24/24 16:[address] [place] [id number] Stat Cat Scan 04/24/24 16:[address] facial bones wo con* [id number] Routine Cat Scan 04/25/24 12:[address] head wo con* [id number] Stat Cat Scan 04/24/24 16:[address] lumbar spine wo con* [id number] Routine Cat Scan 04/26/24 14:[address] thoracic spine wo con [CT thoracic spin wo con* Cat Scan 04/26/24 14:35 Completed [id number]] Routine XR chest 1V portable [id number] Routine Exams 04/28/24 17:19 Completed XR hand RT 2V [id number] Routine Exams 04/25/24 12:47 Completed CV carotid duplex BI* [id number] Routine Ultrasound 04/26/24 06:00 Completed CV. echo complete* [id number] Routine Ultrasound 04/25/24 06:00 Completed Pending at discharge Category Date Time Status Complete Blood Count w/Auto AM LABS Lab 04/30/24 04:00 Ordered Complete Blood Count w/Auto AM LABS Lab 05/01/24 04:00 Ordered Comprehensive Metabolic Panel AM LABS Lab 04/30/24 04:00 Ordered Comprehensive Metabolic Panel AM LABS Lab 05/01/24 04:00 Ordered Radiology Impressions Cervical Spine CT 04/24/24 16:18 IMPRESSION: 1. Minimally displaced acute fracture of the right C5 facet and lamina. 2. Minimally displaced acute fracture of the superior right C6 facet. 3. Old, mild compression deformities of C6 through T3. 4. Multilevel degenerative changes of varying severity in the visualized spine. Multilevel foraminal stenosis of varying severity in the cervical spine. 5. Incidental/nonacute findings are listed in the report. ADDENDUM: 04/24/24 [id number] THIS REPORT CONTAINS FINDINGS THAT MAY BE CRITICAL TO PATIENT CARE. The findings were verbally communicated via telephone conference with Ander Royal at 5:43 PM CDT on 04/24/2024. The findings were acknowledged and understood. Head CT 04/24/24 16:18 IMPRESSION: 1. No acute abnormality of the brain. 2. Mild atrophy of the brain parenchyma. 3. Mild chronic white matter microangiopathic change. 4. Incidental/nonacute findings are listed in the report. Chest/Abdomen/Pelvis CT 04/24/24 16:21 IMPRESSION: Nondisplaced sternal fracture. Age-indeterminate compression deformities of C7-T3. IMPRESSION: No acute findings. Face CT 04/25/24 12:47 IMPRESSION: No acute maxillofacial or orbital fracture detected. Hand X-Ray 04/25/24 12:47 IMPRESSION: No acute abnormality detected. Carotid Doppler Study 04/26/24 06:00 IMPRESSION: No carotid arterial stenosis. REFERENCES: SRU CRITERIA. The degree of internal carotid artery stenosis is based on criteria defined by the Society of Radiologists in Ultrasound (SRU). Normal is no stenosis. Mild is less than 50% stenosis. Moderate is 50-69% stenosis. Severe is greater than 69% stenosis to near occlusion. Near occlusion is a markedly narrowed lumen. Total occlusion is no detectable patent lumen. Lumbar Spine CT 04/26/24 14:35 IMPRESSION: 1. No acute bony abnormalities. 2. No significant spinal stenosis. Thoracic Spine CT 04/26/24 14:35 IMPRESSION: 1. Accentuated kyphotic curvature with stable compression fractures of the upper thoracic spine most pronounced at C3 unchanged from prior study. 2. Multilevel degenerative osteophytosis throughout the thoracic spine. 3. Interval development of bibasilar subsegmental atelectasis. Chest X-Ray 04/28/24 17:19 IMPRESSION: No acute cardiopulmonary disease. Laboratory Results WBC 10.05 10^3/uL (3.29-11.43) 04/29/24 04:54 Corrected WBC Cancelled 04/29/24 00:33 RBC 5.15 10^6/uL (3.85-5.65) 04/29/24 04:54 Hgb 14.30 g/dL (11.27-16.99) 04/29/24 04:54 Hct 44.2 % (37-53) 04/29/24 04:54 MCV 85.8 fl (82-101) 04/29/24 04:54 MCH 27.8 pg (27-33) 04/29/24 04:54 MCHC 32.4 g/dL (30-55) 04/29/24 04:54 RDW 12.7 % (12.1-15.1) 04/29/24 04:54 Plt Count 222 10^3/cmm (157-399) 04/29/24 04:54 MPV 9.6 fL (7.4-10.4) 04/29/24 04:54 Gran % Cancelled 04/29/24 00:33 Neut % (Auto) 59.4 % 04/29/24 04:54 Lymph % (Auto) 29.0 % 04/29/24 04:54 [place] % (Auto) 7.7 % 04/29/24 04:54 Eos % (Auto) 2.7 % 04/29/24 04:54 Baso % (Auto) 0.8 % 04/29/24 04:54 Neut # (Auto) 5.98 10^3/uL (1.8-7.7) 04/29/24 04:54 Lymph # (Auto) 2.9 10^3/uL (0.8-4.8) 04/29/24 04:54 [place] # (Auto) 0.8 10^3/uL (0.2-0.9) 04/29/24 04:54 Eos # (Auto) 0.3 10^3/uL (0.0-0.8) 04/29/24 04:54 Baso # (Auto) 0.1 10^3/uL (0.0-0.1) 04/29/24 04:54 Absolute Gran (auto) Cancelled 04/29/24 00:33 Nucleated RBC % (auto) 0 % 04/29/24 04:54 Nucleated RBCs # 0.0 /100WBC 04/29/24 04:54 D-Dimer 11.85 ug/mLFEU (0-0.59) H 04/24/24 20:39 Specimen Type Arterial 04/28/24 17:38 Sample Site Radial, right 04/28/24 17:38 ABG pH 7.47 (7.35-7.45) H 04/28/24 17:38 ABG pCO2 39.9 mmHg (35-45) 04/28/24 17:38 ABG pO2 65.2 mmHg (80.0-100.0) L 04/28/24 17:38 ABG HCO3 29.2 mmol/L (22-26) H 04/28/24 17:38 ABG Base Excess 5.2 mmol/L (-2.0-2.0) H 04/28/24 17:38 Chris Test Pos 04/28/24 17:38 Hematocrit 46.4 % (42-52) 04/28/24 17:38 O2 Delivery Device Nc 04/28/24 17:38 O2 Liters/Min 0.5 % 04/28/24 17:38 Data Processing Auditor ID [place] 04/28/24 17:38 Sodium 142 mmol/L (136-145) 04/29/24 04:54 Potassium 3.7 mmol/L (3.5-5.1) 04/29/24 04:54 Chloride 103 mmol/L (98-107) 04/29/24 04:54 Carbon Dioxide 25 mmol/L (22-29) 04/29/24 04:54 Anion Gap 17.7 (5-19) 04/29/24 04:54 BUN 17 mg/dL (8-23) 04/29/24 04:54 Creatinine 0.9 mg/dL (0.7-1.2) 04/29/24 04:54 GFR Calculation Not Reportable 04/29/24 04:54 Glucose 150 mg/dL (65-115) H 04/29/24 04:54 POC Glucose 144 mg/dL (70-110) H 04/29/24 06:14 Estimat Average Glucose 235 04/24/24 16:31 Hemoglobin A1c 9.8 % (4.0-6.0) H 04/24/24 16:31 Calculated Osmolality 298 mOsm/kg (285-295) H 04/29/24 04:54 Lactic Acid 1.3 mmol/L (0.5-2.2) 04/28/24 18:10 Calcium 9.0 mg/dL (8.5-10.5) 04/29/24 04:54 Phosphorus 4.1 mg/dL (2.5-4.5) 04/25/24 02:52 Magnesium 2.0 mg/dL (1.7-2.3) 04/25/24 02:52 Total Bilirubin 0.7 mg/dL (0.15-1.2) 04/29/24 04:54 AST 13 U/L (0-40) 04/29/24 04:54 ALT 21 U/L (0-41) 04/29/24 04:54 Alkaline Phosphatase 83 U/L (40-130) 04/29/24 04:54 Creatine Kinase 128 U/L (39-308) 04/28/24 05:41 Troponin T Baseline 14 ng/L (0-15) 04/28/24 18:10 Troponin T 120 Minute 13.52 ng/L (0-15) 04/28/24 20:08 Delta Troponin T -0.48 ABS# (0-10) L 04/28/24 20:08 Troponin T Hi Sens 6Hr 14.42 ng/L (0-15) 04/29/24 00:33 Troponin T Hi Sens 6Hr Delta 0.42 ng/L (0-12) 04/29/24 00:33 C-Reactive Protein 48.6 mg/L (0.0-4.9) H 04/28/24 18:10 Total Protein 6.8 g/dL (6.6-8.7) 04/29/24 04:54 Albumin 3.6 g/dL (3.5-5.2) 04/29/24 04:54 Globulin 3.2 g/dL (1.3-4.6) 04/29/24 04:54 Vitamin B12 1066 pg/mL (232-1245) 04/24/24 16:31 TSH 2.07 uIU/mL (0.27-4.20) 04/24/24 16:31 Urine Color Yellow (Yellow) 04/28/24 18:33 Urine Appearance Clear (CLEAR) 04/28/24 18:33 Urine pH 7 (5-7) 04/28/24 18:33 Ur Specific [place] 1.015 (1.005-1.030) 04/28/24 18:33 Urine Protein Neg (Negative) 04/28/24 18:33 Urine Glucose (UA) Norm (Normal) 04/28/24 18:33 Urine Ketones Negative (Negative) 04/28/24 18:33 Urine Blood Neg (Negative) 04/28/24 18:33 Urine Nitrate Negative (Negative) 04/28/24 18:33 Urine Bilirubin Neg (Negative) 04/28/24 18:33 Urine Urobilinogen Norm mg/dL (Negative) 04/28/24 18:33 Ur Leukocyte Esterase Negative (Negative) 04/28/24 18:33 Urine RBC 0-4 /hpf (0-2) H 04/25/24 02:45 Urine WBC 0-4 /hpf (0-5) H 04/25/24 02:45 Ur Squamous Epith Cells 0-4 /hpf (0-5) H 04/25/24 02:45 Amorphous Sediment Not Reportable 04/25/24 02:45 Urine Bacteria 1+ /hpf (NONE) H 04/25/24 02:45 Urine Mucus 1+ /hpf 04/25/24 02:45 Vitals Last Vital Signs Temp 98.0 F 04/29/24 07:39 Pulse 79 04/29/24 07:53 Resp 18 04/29/24 08:00 BP 141/81 04/29/24 07:39 Pulse Ox 98 04/29/24 08:00 O2 Del Method Nasal Cannula 07/17/24 07:53 O2 Flow Rate 0.5 04/29/24 07:53 Discharge Plan Discharge Patient Disposition: Home Condition: Stable Prescriptions: New morphine 15 mg tablet 15 mg PO Q6H PRN (Reason: pain) 7 Days Qty: 42 0RF insulin aspart U-100 [Novolog FlexPen U-100 Insulin] 100 unit/mL (3 mL) insulin pen See Rx Instructions .ROUTE .COMPLEX MDD 50 Qty: 15 0RF Rx Instructions: Inject, subcut, 3 times daily, after meals, based on sliding scale provided naloxone [Narcan] 4 mg/actuation spray,non-aerosol 4 mg intranasal Q2M PRN (Reason: opioid overdose) Qty: 2 0RF Rx Instructions: spray 1 dose into ONE nostril; alternate nostrils w each dose amoxicillin-pot clavulanate 875-125 mg tablet 1 tab PO BID 7 Days Qty: 14 0RF albuterol sulfate 90 mcg/actuation HFA aerosol inhaler 1 inh inhalation QID PRN (Reason: shortness of breath or wheezing) Qty: 8.5 0RF Continued Fiber Laxative(methylcellulos) 500 mg tablet 500 mg PO QDAY omeprazole 20 mg capsule,delayed release(DR/EC) 20 mg PO BID atorvastatin 80 mg tablet 80 mg PO DAILY aspirin 81 mg tablet,delayed release (DR/EC) 81 mg PO DAILY sennosides [senna] 8.6 mg Tablet 8.6 mg PO BID pregabalin 300 mg capsule 300 mg PO BID Changed Lantus Solostar U-100 Insulin 100 unit/mL (3 mL) insulin pen 25 unit SUBCUT DAILY Qty: 15 0RF Discontinued Mounjaro 12.5 mg/0.5 mL pen injector 12.5 mg SUBCUT Q7D morphine 15 mg tablet 15 mg PO Q8H PRN (Reason: Pain) Discharge Orders: Discharge Order (Routine); Ordered 04/29/24 Ordered By: Silas Cedeño Referrals: Blade Sebastian MD [Primary Care Provider] - 05/04/24 2:20 pm Discharge Diet: Cardiac Discharge Activity: Resume usual activity Patient Instructions: Amoxicillin/Clavulanate Potassium (By mouth), Morphine, Rapid Release (By mouth), Opioid Safety Activity Restrictions/Additional Instructions: Follow-up Ortho clinic in 1 to 2 weeks Lifting restrictions of up to 10 to 20 pounds Wear collar continuously okay to take off to shower. -Please use morphine sparingly, do not drive or operate heavy machinery or drink while taking medication -Please do not use with any other controlled substances -Please continue to ambulate every hour, use incentive spirometer every hour -Monitor for pneumonia, shortness of breath, fevers, if so go to emergency room -If you develop calf pain or calf swelling please immediately go to the emergency room Discharge Attestations Time Spent in Discharge Care*: greater than 30 min Quality Metrics Clinical Quality Measures [ No reported AMI, CVA or VTE this stay] Coding Level of Care Code 69580 Total time (in minutes) for Discharge: 45 Diagnoses Syncopal episodes R55 Encounter for long-term use of opiate analgesic Z79.891 Lumbar and sacral spondyloarthritis M47.817 Facet syndrome, lumbar M47.816 C5 cervical fracture S12.490A Encounter type: initial encounter Fracture alignment: displaced Fracture morphology: other fracture Fracture type: closed Dehydration E86.0 Intractable pain R52
--- NOTE | 2024-04-29 11:30 | PC.NURSE ---
Called [facility] and cancelled fentanyl patch prescription per Dr. Cedeño.
--- NOTE | 2024-04-29 13:17 | PC.NURSE ---
D/C pending delivery of O2 following home O2 eval.
--- NOTE | 2024-04-29 16:20 | PC.OT ---
PT NOT SEEN FOR OT TX AT THIS TIME DUE TO DISCHARGE SCHEDULING.
[2024-04-29 21:25] LABS: Glucose Point of Care 189 mg/dL (70-110)
== END 2024-04-29 16:46 | disposition home or self-care (01) | DRG 552 ==
LOC: ER 19:59 → MEDSURG 20:10
PROVIDERS: Internal Medicine; Admitting Provider Internal Medicine; Emergency Provider General Practice; PCP Internal Medicine; Visit Provider Family Medicine
DX: S12.400A Unspecified displaced fracture of fifth cervical vertebra, initial encounter for closed fracture (principal); S22.030A Wedge compression fracture of third thoracic vertebra, initial encounter for closed fracture; N17.9 Acute kidney failure, unspecified; W17.89XA Other fall from one level to another, initial encounter; I44.0 Atrioventricular block, first degree; G89.29 Other chronic pain; M51.36 Other intervertebral disc degeneration, lumbar region; E11.42 Type 2 diabetes mellitus with diabetic polyneuropathy; E86.0 Dehydration; Z79.82 Long term (current) use of aspirin; Z79.4 Long term (current) use of insulin; Z79.85 Long-term (current) use of injectable non-insulin antidiabetic drugs; E78.5 Hyperlipidemia, unspecified; N52.9 Male erectile dysfunction, unspecified; I10 Essential (primary) hypertension; Z79.891 Long term (current) use of opiate analgesic; M47.817 Spondylosis without myelopathy or radiculopathy, lumbosacral region; R55 Syncope and collapse; M79.18 Myalgia, other site
CPT/HCPCS: 36415; 36416; 36600; 70450; 70486; 71045; 71250; 72125; 72128; 72131; 73120; 74176; 80048; 80053; 81001; 81003; 82550; 82607; 82803; 82962; 83036; 83605; 83735; 84100; 84443; 84484; 85025; 85378; 86140; 90471; 90732; 93005; 93306; 93880; 94760; 94762; 96372; 96374; 96375; 97116; 97162; 97165; 97530; 97535; 97760; 99285; G0378; J1170; J1644; J1815; J2270; J2405; J7030; L0172

== ENCOUNTER → 2024-05-12 14:20 | Outpatient (BNVA) | payer MEDICARE, SELFPAY | PROVIDERS: PCP Internal Medicine; Visit Provider Orthopaedic Surgery | DX: S12.490A Other displaced fracture of fifth cervical vertebra, initial encounter for closed fracture (principal); W19.XXXA Unspecified fall, initial encounter | CPT/HCPCS: 72040; 99204 ==

== ENCOUNTER → 2024-05-28 10:22 | Outpatient (BNVA) | payer MEDICARE, SELFPAY | PROVIDERS: PCP Internal Medicine; Visit Provider Orthopaedic Surgery | DX: S12.490D Other displaced fracture of fifth cervical vertebra, subsequent encounter for fracture with routine healing (principal); X58.XXXD Exposure to other specified factors, subsequent encounter | CPT/HCPCS: 72040; 99213 ==

== ENCOUNTER → 2024-06-25 14:50 | Outpatient (BNVA) | payer MEDICARE, SELFPAY | PROVIDERS: PCP Internal Medicine; Visit Provider Orthopaedic Surgery | DX: S12.490A Other displaced fracture of fifth cervical vertebra, initial encounter for closed fracture (principal); X58.XXXA Exposure to other specified factors, initial encounter | CPT/HCPCS: 72040; 99213 ==

== ENCOUNTER → 2024-07-23 08:17 | Outpatient (BNVA) | payer MEDICARE, SELFPAY | PROVIDERS: PCP Internal Medicine; Visit Provider Orthopaedic Surgery | DX: S12.490A Other displaced fracture of fifth cervical vertebra, initial encounter for closed fracture (principal); W19.XXXA Unspecified fall, initial encounter | CPT/HCPCS: 72040; 99213 ==

== ENCOUNTER 2024-12-22 09:18 | Outpatient (CLI) | payer MEDICARE, SELFPAY ==
[2024-12-22 09:44] LABS: Basophils # 0.1 10^3/uL (0.0-0.1); Eosinophils # 0.2 10^3/uL (0.0-0.8); Eosinophils % 2.6 %; Hematocrit 45.8 % (37-53); Lymphocytes # 3.4 10^3/uL (0.8-4.8); Mean Corpuscular HGB Conc 32.3 g/dL (30-55); Mean Corpuscular Hemoglobin 27.7 pg (27-33); Mean Corpuscular Volume 85.8 fl (82-101); Mean Platelet Volume 9.9 fL (7.4-10.4); Monocytes # 0.6 10^3/uL (0.2-0.9); Monocytes % 7.2 %; Neutrophils # 3.86 10^3/uL (1.8-7.7); Nucleated Red Blood Cells % 0 %; Platelet Count 226 10^3/cmm (157-399); Red Blood Count 5.34 10^6/uL (3.85-5.65); Red Cell Distribution Width 13.6 % (12.1-15.1)
[2024-12-22 09:53] LABS: Estmated Average Glucose 183
[2024-12-22 10:16] LABS: Albumin Level 4.1 g/dL (3.5-5.2); Alkaline Phosphatase 96 U/L (40-130); Anion Gap 14.1 (5-19); Aspartate Amino Transferase 17 U/L (0-40); Blood Urea Nitrogen 14 mg/dL (8-23); Calcium 8.9 mg/dL (8.5-10.5); Carbon Dioxide 28 mmol/L (22-29); Chloride 105 mmol/L (98-107); Chol HDL Ratio 3.45 mg/dL (1.0-5.00); Cholesterol 145 mg/dL (0-200); Globulin 3.5 g/dL (1.3-4.6); Glucose 131 mg/dL (65-115); HDL Cholesterol 42 mg/dL (60-100); LDL Cholesterol Calculated 71 mg/dL (50-129); LDL HDL Ratio 1.69 RATIO (0.00-3.22); Osmolality Calculated 298 mOsm/kg (285-295); Potassium 4.1 mmol/L (3.5-5.1); Sodium 143 mmol/L (136-145); Thyroid Stimulating Hormone 3.04 uIU/mL (0.27-4.20); Total Bilirubin 0.7 mg/dL (0.15-1.2); Total Protein 7.6 g/dL (6.6-8.7); Triglycerides 159 mg/dL (0-150)
[2024-12-22 10:27] LABS: Alanine Aminotransferase 16 U/L (0-41)
== END 2024-12-22 09:19 | disposition home or self-care (01) ==
LOC: LAB 09:20
PROVIDERS: PCP Internal Medicine; Visit Provider Internal Medicine
DX: E11.9 Type 2 diabetes mellitus without complications (principal)
CPT/HCPCS: 36415; 80053; 80061; 83036; 84443; 85025

== ENCOUNTER 2025-01-01 07:19 | Outpatient (CLI) | payer MEDICARE, SELFPAY ==
--- NOTE | 2025-01-01 | ECG_ITS ---
Celletra Test Date: 2025-01-01 Pat Name: Scotty Bro Department: Room: Gender: Male Photographic Aide: : 1940 Requested By: Blade Sebastian Order Number: [id number] Gerard MD: Sanam Boswell M.D. Interpretive Statements Lung unchanged pre/post procedure; Intraprocedure shortess of breath; Symptoms resoled by discharge Supraventricular ectopics PROCEDURE: At the baseline, the EKG revealed normal sinus rhythm with normal ST Ts. The baseline heart was 64 bpm with a blood pressue of 131/68 mm of Hg Lexiscan was infused over a period of 20 seconds. A total of 0.4 milligrams of Lexiscan was infused. The stress phase was continued for a total of 5 minutes. Heart rate at the end of the stress phase was 73 bpm with a blood pressure 117/54 mm of Hg. The EKG at the peak infusion revealed no significant changes. Sestamibi was injected 20 seconds after the Lexiscan infusion. Heart rate at the end of the recovery phase was 70 bpm with a blood pressure of 111/56 mm of Hg. CONCLUSION: 1. No significant EKG changes with the LexiScan infusion 2. No LexiScan induced chest pain or cardiac arrhythmia 3. Normal blood pressure and heart rate response 4. Sestamibi/sestamibi perfusion scan pending; see separate report. Electronically Signed On 01-01-2025 13:40:25 CDT by Sanam Boswell M.D. [email or web address]
[2025-01-01 07:59] VITALS: BMI 26.9
--- NOTE | 2025-01-01 08:02 | NMCV_ITS ---
NM hugo perf SPECT r/s* [id number] Scotty Bro Age: 84 Gender: M : 1940 Exam Date: 01/01/2025 08:34 Ordering Phys: Blade Sebastian MD Technologist: MICHELLE Burgos Exam Location: [facility] Indications: CP STRESS TEST Please see separate stress test report in [facility] for full findings IMAGE PROTOCOL Rest/Stress 1 Lexiscan Day Radiopharmaceutical Dose (mCi) Administration Site Administered by Rest: Tc-99m 10.6 IV Lata Zhao, POWER PRESS SUPERVISOR Sestamibi Stress:Tc-99m 32.9 IV Lata Cece, POWER PRESS SUPERVISOR Sestamibi Rest: 01-Jan-2025 60 Discovery 630 Stress: 01-Jan-2025 30 Discovery 630 0.4mg Lexiscan. Images obtained in supine and prone position. SPECT RESULTS Technical Quality: Good Raw Data Analysis: Normal Image Corrections: No attenuation or motion correction applied Summed Stress Score: 4 Summed Rest Score: 0 Summed Difference Score: 4 PERFUSION FINDINGS Small to moderate area of minimal to moderately decreased tracer uptake involving the mid inferior, mid inferolateral and apical lateral segments. Significant reversibility was noted in these segments, with the supine imaging. However with the prone imaging, no significant reversibility was noted FUNCTIONAL RESULTS (calculated via Gated SPECT) Stress Image LV EF (%): 82 Stress EDV (mL):67 TID: 1.64 Stress ESV (mL):12 FUNCTIONAL FINDINGS: Segmental wall motion analysis revealing no gross wall motion abnormalities. The transient ischemic dilatation ratio was found to be elevated to 1.64 IMPRESSIONS 1. Myocardial perfusion imaging revealing small to moderate area of minimal to moderately decreased reversible defect involving the inferior, inferolateral and apical lateral regions suggesting ischemia predominantly in the distribution of the left circumflex artery. Because of the inconsistency, the reliability may be low. However in view of the significantly elevated transient ischemic dilatation ratio, underlying coronary ischemia is a strong consideration. Clinical correlation is recommended. 2. Normal LV ejection fraction of 82% 3. LV wall motion analysis revealing no gross wall motion abnormalities. 4. Normal LV volume No similar previous studies are available for comparison Dr Sanam Boswell MD [facility] (Electronically Signed) Final Date: 01 January 2025 13:06 S
[2025-01-01] MEDS: regadenoson 0.4 Mg/5 ml Syringe IVP (09:12)
[2025-01-01 09:20] VITALS: BP 117/54; PULSE 70
== END 2025-01-01 07:20 | disposition home or self-care (01) ==
PROVIDERS: PCP Internal Medicine; Visit Provider Internal Medicine
DX: R07.89 Other chest pain (principal); R93.1 Abnormal findings on diagnostic imaging of heart and coronary circulation
CPT/HCPCS: 36415; 78452; 93017; 96374; A9500; J2785

== ENCOUNTER 2025-07-06 07:30 | Outpatient (CLI) | payer MEDICARE, SELFPAY ==
--- NOTE | 2025-07-06 07:45 | USR_ITS ---
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 Images documented and saved. COMPARISON: No relevant prior studies available. FINDINGS: Right common iliac and femoral artery: No occlusion or significant stenosis. Normal waveform. No pseudoaneurysm in the inguinal region. Right superficial femoral artery: No occlusion or significant stenosis. Normal waveform. Right popliteal artery: No occlusion or significant stenosis. Normal waveform. Right calf/foot arteries: No occlusion or significant stenosis in the visualized arteries. Normal waveforms. Dorsalis pedis artery is patent. Soft tissues: No hematoma or collection. Other findings: Right JUANA 1.19 US/[place] [id number] IMPRESSION: No stenosis or occlusion.
== END 2025-07-06 07:31 | disposition home or self-care (01) ==
LOC: RAD 07:35
PROVIDERS: PCP Internal Medicine; Visit Provider Internal Medicine
DX: L97.512 Non-pressure chronic ulcer of other part of right foot with fat layer exposed (principal)
CPT/HCPCS: 93926

== ENCOUNTER → 2025-07-14 14:09 | Outpatient (BNVA) | payer MEDICARE, SELFPAY | PROVIDERS: PCP Internal Medicine; Visit Provider Podiatrist Foot & Ankle Surgery | DX: E11.621 Type 2 diabetes mellitus with foot ulcer (principal); E11.40 Type 2 diabetes mellitus with diabetic neuropathy, unspecified; L97.518 Non-pressure chronic ulcer of other part of right foot with other specified severity; Z79.4 Long term (current) use of insulin | CPT/HCPCS: 99213 ==